=== PATIENT | male | born 1975 | race African-American/Black ===

== ENCOUNTER 2024-02-11 20:06 | Emergency (ER) | payer BC, SELFPAY ==
[2024-02-11 20:23] VITALS: BP 107/78; PULSE 93; RESP 15; TEMP 36.5; O2SAT 99
--- NOTE | 2024-02-12 05:37 | PC.NURSE ---
called for vitals, no answer
--- OUTSIDE RECORDS SUMMARY | 2024-02-19 03:34 | XMS_ITS | Encounter Summary ---
Author Organization [facility] Address [address] [place] [address] Phone Care Team Providers Care Log Washer Name Role Phone Tracy Soto PAC Primary Care Pro vider Reason for Visit * Reason Comments Follow-up 2 week f/u blood pre ssure Encounter Details Date Type Department Care Team (Late st Contact Info) Description 04/23/2023 3:30 PM CDT Office Visit [facility] - Internal Medicine - [place] [address] [id number] Tracy Soto, [facility] [address] [place] [address] Primary hypertension (Primary Dx) Discharge Disposition: Discharged to home or Selfcare Social History Tobacco Use Types Packs/Day Years Used Date Smoking Tobacco: Some Days Smokeless Tobacco: Never Tobacco Cessation:Ready to Q uit: Not Asked; Counseling Given: Not Answered Alcohol Use Standard Drinks/Week Comments Yes 0 (1 standard drink = 0.6 oz pur e alcohol) [facility] Utilities Answer Date Recorded In the past 12 months has NCR, gas, oil, or water company threatened to shut off services in your home? No 02/21/2023 Social Connection and Isolat ion Panel [NHANES] Answer Date Recorded In a typical week, how many times do you talk on the phone with family, friends, or neighbors? More than three times a week 02/21/2023 How often do you get togethe r with friends or relatives? Once a week 02/21/2023 How often do you attend chur or caodaism services? Patient declined 02/21/2023 Do you belong to any clubs o r organizations such as adventist groups, unions, fraternal or athletic groups, or school groups? Yes 02/21/2023 How often do you attend meet ings of the clubs or organizations you belong to? Patient declined 02/21/2023 Are you , , di vorced, , never , or living with a partner? 02/21/2023 AUDIT-C Answer Date Recorded Q1: How often do you have a drink containing alcohol? Monthly or less 02/21/2023 Q2: How many drinks containi ng alcohol do you have on a typical day when you are drinking? Patient does not drink Q3: How often do you have si x or more drinks on one occasion? Never 02/21/2023 Overall Financial Resource Strain (CARDIA) Answe r Date Recorded How hard is it for you to pa y for the very basics like food, housing, medical care, and heating? Not very hard 02/21/2023 PHQ-2 Answer Date Recorded Total Score - Questions 1-9 0 04/12 [facility] - Occupational Stress Questionnaire Answer Date Recorded Do you feel stress - tense, restless, nervous, or anxious, or unable to sleep at night because your mind is troubled all the time - these days? To some extent 02/21/2023 Exercise Vital Sign Answer Date Recorde d On average, how many days pe r week do you engage in moderate to strenuous exercise (like a brisk walk)? 6 days 02/21/2023 On average, how many minutes do you engage in exercise at this level? 150+ min 02/21/2023 Hunger Vital Sign Answer Date Recorded Within the past 12 months, y ou worried that your food would run out before you got the money to buy more. Never true 02/21/19 24 Within the past 12 months, t he food you bought just didn't last and you didn't have money to get more. Never true 02/21/2023 PRAPARE - Transportation Answer Date Re corded In the past 12 months, has l ack of transportation kept you from medical appointments or from getting medications? No 02/12 In the past 12 months, has l ack of transportation kept you from meetings, work, or from getting things needed for daily living? No 02/21/2023 Housing Stability Vital Sign Answer Adama e Recorded In the last 12 months, was t here a time when you were not able to pay the mortgage or rent on time? No 02/21/2023 In the last 12 months, how many places have you lived? 1 02/21/2023 In the last 12 months, was t here a time when you did not have a steady place to sleep or slept in a intermediate (including now)? No 02/21/2023 Education Answer Date Recorded What is the highest level of school you have completed or the highest degree you have received? Associate degree: occupational, technical, or vocational program 06/26/2022 Sexually Active Control Partners Comments Yes Sex and Gender Information Value Date Recorded Sex Assigned at Not on file Legal Sex Male 11:25 AM CDT Gender Identity Not on file Sexual Orientation Not on file documented as of this encounter Last Filed Vital Signs Vital Sign Reading Time Taken Comments Blood Pressure 142/74 04/23/2023 3:36 PM CDT Pulse 64 04/23/2023 3:36 PM CDT Temperature 37.1 ??C (98.7 ??F) 04/23/2023 3:36 PM CD T Respiratory Rate 12 04/23/2023 3:36 PM CDT Oxygen Saturation 98% 04/23/2023 3:36 PM CDT Inhaled Oxygen Concentration - - Weight 79.7 kg (175 lb 9.6 oz) 04/23/2023 3:36 P M CDT Height 170.2 cm (5' 7 ) 04/23/2023 3:36 PM CDT Body Mass Index 27.5 04/23/2023 3:36 PM CDT documented in this encounter Functional Status * Question Answer Date of Assessment Author Little interest or pleasure in doing things Not at all 04/23/2023 3:35 PM CDT Natalie Heck Feeling down, depressed, or hopeless Not at all 04/12 3:35 PM CDT Umang Natalie * Over the past 2 weeks, how often have you been bothered by any of the following problems? Question Answer Date of Assessment Author Patient Health Questionnaire-2 Score 0 04/12 3:35 PM CDT Umang May documented as of this encounter Progress Notes * Umang May - 04/23/2023 3:30 PM CDT Geoffrey Walker, 48 y.o., male is here for Follow-up (2 week f/u blood pressure) Medication Refills: Patient reports/denies need for medication refills. Orders Pended: no Requested Prescriptions No prescriptions requested or ordered in this encounter Home Medications Medication Sig Start Date End Date Taking? Authorizing Provider cloNIDine (CATAPRES) 0.1 MG Tablet Take one tablet twice day NEEDED if blood pressure if 170/90 or higher 02/21/23 Yes Tracy Soto PAC lisinopril (PRINIVIL, ZESTRIL) 40 MG Tablet Take 1 Tablet by mouth daily. 02/21/23 Yes Tracy Soto PAC varenicline (CHANTIX) 1 MG Tablet Take 1 Tablet by mouth 2 times daily. 01/22/23 Yes Tracy Soto PAC There are no discontinued medications. I have reviewed the home medication list with the patient and have reconciled discrepancies. The list is accurate to the best of my knowledge. Smoking Status: Social History Tobacco Use Smoking status: Some Days Smokeless tobacco: Never Vaping Use Vaping Use: Never used Substance Use Topics Alcohol use: Yes Drug use: Yes Types: Marijuana Smoking Cessation Counseling Given: no Health Care Maintenance: Health Maintenance Due Topic Date Due Hepatitis B Immunization (1 of 3 - 3-dose series) Never done Hepatitis C Virus (HCV) Screening Never done Pneumococcal Immunization Combined (1 of 2 - PCV) Never done DTaP/Tdap/Td Immunization (1 - Tdap) Never done Colorectal Cancer Screening Never done Influenza Immunization (1) 10/13/2022 SARS-COV-2 Immunization ( - 2022- season) 2022 Orders Pended: no The following BPA's have been addressed with the patient today: BMI, Depression, Fall Risk, and Nutrition * Tracy Soto PAC - 04/23/2023 3:30 PM CDT Chief Complaint: Chief Complaint Patient presents with Follow-up 2 week f/u blood pressure Assessment/Plan: Diagnoses and all orders for this visit: Primary hypertension Other orders - hydroCHLOROthiazide (MICROZIDE) 12.5 MG Capsule; Take 1 Capsule by mouth daily. Add HCTZ Cont lisinopril 40 daily BP log BID F/u 1 mo Subjective: Mr. Geoffrey Walker is a 48 y.o. male here today for above. BP check BP is better but still 140s No other c/o Tolerating meds well ROS: Review of Systems All other systems reviewed and are negative. VITAL SIGNS: BP Readings from Last 3 Encounters: 04/23/23 142/74 02/21/23 190/84 01/22/23 150/86 Wt Readings from Last 3 Encounters: 04/23/23 175 lb 9.6 oz (79.7 kg) 02/21/23 181 lb (82.1 kg) 01/22/23 174 lb (78.9 kg) Vitals: 04/23/23 1536 BP: 142/74 BP Location: Left Arm BP Position: Sitting BP Cuff Size: Regular Pulse: 64 Resp: 12 Temp: 98.7 ??F (37.1 ??C) TempSrc: Temporal SpO2: 98% Weight: 175 lb 9.6 oz (79.7 kg) Height: 5' 7 (1.702 m) Body mass index is 27.5 kg/m??. PHYSICAL EXAM: Physical Exam Vitals reviewed. Constitutional: Appearance: Normal appearance. HENT: Head: Normocephalic and atraumatic. Cardiovascular: Rate and Rhythm: Regular rhythm. Heart sounds: Normal heart sounds. Pulmonary: Breath sounds: Normal breath sounds. Musculoskeletal: General: Normal range of motion. Skin: General: Skin is warm. Neurological: Mental Status: Mental status is at baseline. Psychiatric: Mood and Affect: Mood normal. Labs/Studies Reviewed: Lab Results Component Value Date WBC 6.94 06/26/2022 HEMOGLOBIN 13.7 06/26/2022 HEMATOCRIT 44.0 06/26/2022 PLATELETCNT 267 06/26/2022 MCV 94.8 06/26/2022 Lab Results Component Value Date SODIUM 138 06/26/2022 POTASSIUM 3.9 06/26/2022 CHLORIDE 101 06/26/2022 CO2VEN 30 06/26/2022 ANIONGAP 10.9 06/26/2022 GLUCOSE 84 06/26/2022 BUN 10 06/26/2022 CREATININE 0.91 06/26/2022 BCRATIO8 11 (L) 06/26/2022 TOTALPROTEIN 6.6 06/26/2022 ALBUMIN 4.3 06/26/2022 CALCIUM 9.3 06/26/2022 TBIL <0.3 06/26/2022 SGOTAST 14 06/26/2022 SGPTALT 11 06/26/2022 ALKALINEPHO 76 06/26/2022 GFRNA >60 06/26/2022 GFRA >60 06/26/2022 Lab Results Component Value Date TSH 1.110 06/26/2022 Lab Results Component Value Date HGBA1C 5.5 06/26/2022 Lab Results Component Value Date CHOLESTEROL 168 06/26/2022 TRIGLYCRIDES 54 06/26/2022 HDLCHOLESTE 63.4 06/26/2022 LDL 94 06/26/2022 No results found for: PSASCREEN , PSA , PSAFREE , PSAPCNTFREE , PSATOTAL @MAMMOFINDINGS@ No results found. Recent Procedure Details No resulted procedures found. FOLLOWUP: Follow-up Information Return in about 4 weeks (around 05/21/2023) for BP Review. LOS Today OFFICE/OP EST LVL 3 LOW MDM/20-29 MIN Past medical, surgical, social and family history has been reviewed and updated as necessary. Medications and allergies has been reviewed and updated. I discussed all new medications and potential side effects or risks associated with them. Patient is to contact our office with any concerns. Patient instructions and educational materials were given to the patient. Patient (or patient insurance account representative) demonstrates verbal understanding of instructions given. Patient should follow up with their PCP for general health maintenance needs. Patient should contact our office if their problems persist or call 911/go the to ER if issues become more persistent. If any referrals have been made, patient should contact our office with in 3-5 days if they have not heard anything from our referral team or the referring physician. documented in this encounter Plan of Treatment Not on file documented as of this encounter Visit Diagnoses Diagnosis Primary hypertension- Primary Unspecified essential hypertension documented in this encounter Additional Health Concerns Assessment Noted Time PHQ-9 Depression Total Score: 0 04/23/19 24 3:35 PM CDT documented as of this encounter Care Teams Log Washer Relationship Specialty Start Date End Date Tracy Soto PAC [address] [place] [address] PCP - General Physician Compass Operator 12/21/21 documented as of this encounter
--- OUTSIDE RECORDS SUMMARY | 2024-02-19 03:34 | XMS_ITS | Encounter Summary ---
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 Role Phone Tracy Soto Primary Care Pro vider Reason for Referral * PT/OT/ST (Routine) - Canceled Specialty Diagnoses / Procedures Referred By Preeti tatum Referred To Contact Rehabilitation Diagnoses Left shoulder pain, unspecified chronicity Neck pain Tracy Soto PAC [address] [place] [address] Phone: tel: fax: [facility] [address] [facility], [address] [address] Phone: tel: fax: Referral ID Status Reason Start Date Expiration Date V isits Requested Visits Authorized [id number] Canceled 07/06/2023 1 1 Scheduling Instructions Geoffrey is being referred for neck pain and shoulder. Please contact patient for scheduling questions or concerns. * Radiology Services (Routine) - Closed Specialty Diagnoses / Procedures Referred By Preeti tatum Referred To Contact Radiology Diagnoses Left shoulder pain, unspecified chronicity Procedures XR SHOULDER COMPLETE LEFT Tracy Soto PAC [address] [place] [address] Phone: tel: fax: Referral ID Status Reason Start Date Expiration Date Visits Re quested Visits Authorized [id number] Closed 07/06/2023 1 1 * Radiology Services (Routine) - Closed Specialty Diagnoses / Procedures Referred By Contac t Referred To Contact Radiology Diagnoses Neck pain Procedures XR CERVICAL SPINE MINIMUM 4 VIEWS (4 OR 5V) Tracy Soto PAC [address] [place] [address] Phone: tel: fax: Referral ID Status Reason Start Date Expiration Date Visits Re quested Visits Authorized [id number] Closed 07/06/2023 1 1 Reason for Visit * Reason Comments Pain Hand pain in joints , and left shoulder , left hand hurts more Encounter Details Date Type Department Care Team (Late st Contact Info) Description 07/06/2023 4:00 PM CDT Office Visit [facility] - Internal Medicine - [place] [address] [place] [address] Tracy Soto PAC [address] [place] [address] Primary hypertension (Primary Dx); Elevated blood pressure reading; Left shoulder pain, unspecified chronicity; Neck pain Discharge Disposition: Discharged to home or Selfcare Social History Tobacco Use Types Packs/Day Years Used Date Smoking Tobacco: Some Days Smokeless Tobacco: Never Tobacco Cessation:Ready to Q uit: No; Counseling Given: No Alcohol Use Standard Drinks/Week Comments Yes 0 (1 standard drink = 0.6 oz pur e alcohol) [facility] Utilities Answer Date Recorded In the past 12 months has e [employer], gas, oil, or water [employer] threatened to shut off services in your [...] 02/21/2023 How often do you attend chur ch or amish services? Patient declined 02/21/2023 Do you belong to any clubs o r organizations such as yarsani groups, unions, fraternal or athletic groups, or [...] Total Score - Questions 1-9 0 04/12 [facility] - Occupational Stress Questionnaire Answer Date Recorded [...] place to sleep or slept in a nursing home (including now)? No 02/21/2023 Education Answer Date [...] Sign Reading Time Taken Comments Blood Pressure 129/68 07/06/2023 3:54 PM CDT his cuff Pulse 79 07/06/2023 3:52 PM CDT Temperature 36.4 ??C (97.5 ??F) 07/06/2023 3:52 PM CD T Respiratory Rate 12 07/06/2023 3:52 PM CDT Oxygen Saturation 98% 07/06/2023 3:52 PM CDT Inhaled Oxygen Concentration - - Weight 82.1 kg (181 lb) 07/06/2023 3:52 PM CDT Height 170.2 cm (5' 7 ) 07/06/2023 3:52 PM CDT Body Mass Index 28.35 07/06/2023 3:52 PM CDT documented in this encounter Progress Notes * Tracy Soto, PAC - 07/06/2023 4:00 PM CDT Chief Complaint: Chief Complaint Patient presents with Pain Hand pain in joints , and left shoulder , left hand hurts more Assessment/Plan: Diagnoses and all orders for this visit: Primary hypertension Elevated blood pressure reading Left shoulder pain, unspecified chronicity - XR SHOULDER COMPLETE LEFT; Future - PHYSICAL THERAPY REFERRAL; Future Neck pain - XR CERVICAL SPINE MINIMUM 4 VIEWS (4 OR 5V); Future - PHYSICAL THERAPY REFERRAL; Future Other orders - methylPREDNISolone (MEDROL DOSPACK) 4 MG Tablet Therapy Pack; Follow instructions on pack, take with food; Give one pack L shoulder pain Neck pain Advised MDP OTC nsaids PRN PT eval and treat BP controlled today F/u in 4 wks after PT Await xrays Subjective: Mr. Geoffrey Walker is a 48 y.o. male here today for above. Pt c/u neck pain and L shoulder pain Sx are made worse at work Pt is R handed Denies any specific injury Sx for a few weeks ROS: Review of Systems Musculoskeletal: Positive for joint pain and neck pain. VITAL SIGNS: BP Readings from Last 3 Encounters: 07/06/23 129/68 05/28/23 172/82 04/23/23 142/74 Wt Readings from Last 3 Encounters: 07/06/23 181 lb (82.1 kg) 05/28/23 181 lb (82.1 kg) 04/23/23 175 lb 9.6 oz (79.7 kg) Vitals: 07/06/23 1552 07/06/23 1554 BP: 146/76 129/68 BP Location: Left Arm BP Position: Sitting BP Cuff Size: Regular Pulse: 79 Resp: 12 Temp: 97.5 ??F (36.4 ??C) TempSrc: Temporal SpO2: 98% Weight: 181 lb (82.1 kg) Height: 5' 7 (1.702 m) Body mass index is 28.35 kg/m??. PHYSICAL EXAM: Physical Exam Vitals reviewed. Constitutional: Appearance: Normal appearance. HENT: Head: Normocephalic and atraumatic. Mouth/Throat: Mouth: Mucous membranes are moist. Eyes: Extraocular Movements: Extraocular movements intact. Cardiovascular: Rate and Rhythm: Regular rhythm. Pulmonary: Effort: Pulmonary effort is normal. Breath sounds: Normal breath sounds. Musculoskeletal: General: Tenderness present. No deformity. Normal range of motion. Comments: Neck pain with URIAH No deformity DTRs 2/4 Sens grossly intact Good strength L shoulder pain Decreased ROM L shoulder Skin: General: Skin is warm. Neurological: General: No focal deficit present. Mental Status: He is alert. Psychiatric: Mood and Affect: Mood normal. Labs/Studies Reviewed: Lab Results Component Value Date WBC 7.36 07/07/2023 HEMOGLOBIN 12.9 (L) 07/07/2023 HEMATOCRIT 40.9 07/07/2023 PLATELETCNT 317 07/07/2023 MCV 92.1 07/07/2023 Lab Results Component Value Date SODIUM 144 07/07/2023 POTASSIUM 4.0 07/07/2023 CHLORIDE 110 (H) 07/07/2023 CO2VEN 27 07/07/2023 ANIONGAP 11.0 07/07/2023 GLUCOSE 92 07/07/2023 BUN 8 (L) 07/07/2023 CREATININE 1.14 07/07/2023 BCRATIO8 7 (L) 07/07/2023 TOTALPROTEIN 6.8 07/07/2023 ALBUMIN 4.1 07/07/2023 CALCIUM 9.1 07/07/2023 TBIL 0.3 07/07/2023 SGOTAST 16 07/07/2023 SGPTALT 17 07/07/2023 ALKALINEPHO 67 07/07/2023 GFRNA >60 07/07/2023 GFRA >60 07/07/2023 Lab Results Component Value Date TSH 0.767 07/07/2023 Lab Results Component Value Date HGBA1C 5.8 07/07/2023 Lab Results Component Value Date CHOLESTEROL 166 07/07/2023 TRIGLYCRIDES 60 07/07/2023 HDLCHOLESTE 53 07/07/2023 LDL 101 07/07/2023 Lab Results Component Value Date PSASCREEN 1.42 07/07/2023 @MAMMOFINDINGS@ No results found. Recent Procedure Details No resulted procedures found. FOLLOWUP: Follow-up Information Return in about 4 weeks (around 08/03/2023) for Acute symptom check. LOS Today OFFICE/OP EST LVL 3 LOW [...] given to the patient. 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 [...] documented in this encounter Plan of Treatment Scheduled Referrals Name Type Priority Associated Diagnoses Orde r Schedule PHYSICAL THERAPY REFERRAL Outpatient Referral Routine Left shoulder pain, unspecified chronicity Neck pain Expected: 07/06/2023, Expires: 07/05/2024 documented as of this encounter Results * XR SHOULDER COMPLETE LEFT (07/07/2023 11:57 AM CDT) Anatomical Region Laterality Modality UPPER EXTREMITY, shoulder Left Digita l Radiography 07/08/2023 12:2 0 PM CDT Impressions 07/08/2023 12:23 PM CDT IMPRESSION: Ommb-oz-plhlzbpv C6-C7 degenerative disc disease with left-sided foraminal impingement. Normal left shoulder evaluation. Narrative 07/08/2023 12:23 PM CDT EXAM DESCRIPTION: XR CERVICAL SPINE MINIMUM 4 VIEWS (4 OR 5V); XR SHOULDER COMPLETE LEFT REASON FOR STUDY: Pain to inferior shoulder blade radiating to bilateral arms and into neck with numbness and tingling x 4-5 days. No known injury. No neck surgery. ??; Pain to inferior shoulder blade radiating to bilateral arms and into neck with numbness and tingling x 4-5 days. No known injury. Unsure if this is the shoulder that he had surgery. ? FINDINGS: Four views left shoulder and five views cervical spine submitted without comparison. Cervical spine. No acute fractures are identified. ??There is no prevertebral soft tissue swelling. ??There is mzmi-we-ygdbixpi C6-C7 degenerative disc disease. ?? There is left-sided C6-C7 foraminal impingement. Left shoulder: No acute fractures are identified. ??Alignment is normal. ??The joint spaces are normal. THIS IS AN ELECTRONICALLY VERIFIED FINAL REPORT 07/08/2023 12:20 PM - Electronically signed by ??Chacorta Maldonado M.D. MF: [id number] D: ??07/08/2023 12:20 PM T: ??07/08/2023 12:20 PM Report ID: [id number] Reading Location: ??[id number] Procedure Note Chacorta Maldonado MD - 07/08/2023 EXAM DESCRIPTION: XR CERVICAL SPINE MINIMUM 4 VIEWS (4 OR 5V); XR SHOULDER COMPLETE LEFT REASON FOR STUDY: Pain to inferior shoulder blade radiating to bilateral arms and into neck with numbness and tingling x 4-5 days. No known injury. No neck surgery. ; Pain to inferior shoulder blade radiating to bilateral arms and into neck with numbness and tingling x 4-5 days. No known injury. Unsure if this is the shoulder that he had surgery. FINDINGS: Four views left shoulder and five views cervical spine submitted without comparison. Cervical spine. No acute fractures are identified. There is no prevertebral soft tissue swelling. There is fccw-xc-ngnjamwt C6-C7 degenerative disc disease. There is left-sided C6-C7 foraminal impingement. Left shoulder: No acute fractures are identified. Alignment is normal. The joint spaces are normal. THIS IS AN ELECTRONICALLY VERIFIED FINAL REPORT 07/08/2023 12:20 PM - Electronically signed by Chacorta Maldonado M.D. MF: [id number] Report ID: [id number] Reading Location: [id number] IMPRESSION: Gcsq-rj-knmerrtk C6-C7 degenerative disc disease with left-sided foraminal impingement. Normal left shoulder evaluation. Tracy Soto [facility] IMG DIAGNOSTIC OR DERABLES Final Result * XR CERVICAL SPINE MINIMUM 4 VIEWS (4 OR 5V) (07/07/2023 11:52 AM CDT) Anatomical Region Laterality Modality Spine, C-spine N/A Digital Radiogra phy 07/08/2023 12:2 0 PM CDT Impressions 07/08/2023 12:23 PM CDT IMPRESSION: Adpr-dh-sfiqzbpo C6-C7 degenerative disc disease with left-sided foraminal impingement. Normal left shoulder evaluation. Narrative 07/08/2023 12:23 PM CDT EXAM DESCRIPTION: XR CERVICAL SPINE MINIMUM 4 VIEWS (4 OR 5V); XR SHOULDER COMPLETE LEFT REASON FOR STUDY: Pain to inferior shoulder blade radiating to bilateral arms and into neck with numbness and tingling x 4-5 days. No known injury. No neck surgery. ??; Pain to inferior shoulder blade radiating to bilateral arms and into neck with numbness and tingling x 4-5 days. No known injury. Unsure if this is the shoulder that he had surgery. ? FINDINGS: Four views left shoulder and five views cervical spine submitted without comparison. Cervical spine. No acute fractures are identified. ??There is no prevertebral soft tissue swelling. ??There is nvfr-mu-eenwljoo C6-C7 degenerative disc disease. ?? There is left-sided C6-C7 foraminal impingement. Left shoulder: No acute fractures are identified. ??Alignment is normal. ??The joint spaces are normal. THIS IS AN ELECTRONICALLY VERIFIED FINAL REPORT 07/08/2023 12:20 PM - Electronically signed by ??Chacorta Maldonado M.D. MF: [id number] D: ??07/08/2023 12:20 PM T: ??07/08/2023 12:20 PM Report ID: [id number] Reading Location: ??[id number] Procedure Note Chacorta Maldonado MD - 07/08/2023 EXAM DESCRIPTION: XR CERVICAL SPINE MINIMUM 4 VIEWS (4 OR 5V); XR SHOULDER COMPLETE LEFT REASON FOR STUDY: Pain to inferior shoulder blade radiating to bilateral arms and into neck with numbness and tingling x 4-5 days. No known injury. No neck surgery. ; Pain to inferior shoulder blade radiating to bilateral arms and into neck with numbness and tingling x 4-5 days. No known injury. Unsure if this is the shoulder that he had surgery. FINDINGS: Four views left shoulder and five views cervical spine submitted without comparison. Cervical spine. No acute fractures are identified. There is no prevertebral soft tissue swelling. There is snkf-ef-lhhsfmqs C6-C7 degenerative disc disease. There is left-sided C6-C7 foraminal impingement. Left shoulder: No acute fractures are identified. Alignment is normal. The joint spaces are normal. THIS IS AN ELECTRONICALLY VERIFIED FINAL REPORT 07/08/2023 12:20 PM - Electronically signed by Chacorta Maldonaod M.D. MF: [id number] Report ID: [id number] Reading Location: [place] [id number] IMPRESSION: Svwv-ju-mzxzitqo C6-C7 degenerative disc disease with left-sided foraminal impingement. Normal left shoulder evaluation. 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
--- OUTSIDE RECORDS SUMMARY | 2024-02-19 03:34 | XMS_ITS | Encounter Summary ---
Author Organization [facility] Address [address] [place] [address] Phone Care Team Providers Care Box Builder Name Role Phone Tracy Soto PAC Primary Care Pro vider Reason for Visit * Reason Comments Hypertension Encounter Details Date Type Department Care Team (Late st Contact Info) Description 01/22/2023 3:30 PM SENIOR AUTOMATION ENGINEER Office Visit [facility] - [facility] - [place] [address] [place] [id number] Tracy Soto, [facility] [address] [place] [address] Elevated blood pressure reading (Primary Dx); Primary hypertension; Smoker Discharge Disposition: Discharged to home or Selfcare Social History Tobacco Use Types Packs/Day Years Used Date Smoking Tobacco: Some Days Smokeless Tobacco: Never Tobacco Cessation:Ready to Q uit: No; Counseling Given: No Alcohol Use Standard Drinks/Week Comments Yes 0 (1 standard drink = 0.6 oz pur e alcohol) Education Answer Date Recorded What is the [...] Sign Reading Time Taken Comments Blood Pressure 150/86 01/22/2023 3:30 PM SENIOR AUTOMATION ENGINEER Pulse 81 01/22/2023 3:30 PM SENIOR AUTOMATION ENGINEER Temperature 36.7 ??C (98 ??F) 01/22/2023 3:30 PM SENIOR AUTOMATION ENGINEER Respiratory Rate 12 01/22/2023 3:30 PM SENIOR AUTOMATION ENGINEER Oxygen Saturation 98% 01/22/2023 3:30 PM SENIOR AUTOMATION ENGINEER Inhaled Oxygen Concentration - - Weight 78.9 kg (174 lb) 01/22/2023 3:30 PM SENIOR AUTOMATION ENGINEER Height 170.2 cm (5' 7 ) 01/22/2023 3:30 PM SENIOR AUTOMATION ENGINEER Body Mass Index 27.25 01/22/2023 3:30 PM SENIOR AUTOMATION ENGINEER documented in this encounter Patient Instructions * Patient Instructions* Macy Parada, RMA - 01/22/2023 3:30 PM SENIOR AUTOMATION ENGINEER Images from the original note were not included. Steps to Quit Smoking Smoking tobacco is the leading cause of preventable . It can affect almost every organ in the body. Smoking puts you and those around you at risk for developing many serious chronic diseases. Quitting smoking can be difficult, but it is one of the best things that you can do for your health. It is never too late to quit. How do I get ready to quit? When you decide to quit smoking, create a plan to help you succeed. Before you quit: ??? Pick a date to quit. Set a date within the next 2 weeks to give you time to prepare. ??? Write down the reasons why you are quitting. Keep this list in places where you will see it often. ??? Tell your family, friends, and co-workers that you are quitting. Support from your loved ones can make quitting easier. ??? Talk with your health care provider about your options for quitting smoking. ??? Find out what treatment options are covered by your health insurance. ??? Identify people, places, things, and activities that make you want to smoke (triggers). Avoid them. What first steps can I take to quit smoking? Throw away all cigarettes at home, at work, and in your car. ??? Throw away smoking accessories, such as ashtrays and lighters. ??? Clean your car. Make sure to empty the ashtray. ??? Clean your home, including curtains and carpets. What strategies can I use to quit smoking? Talk with your health care provider about combining strategies, such as taking medicines while you are also receiving in-person counseling. Using these two strategies together makes you more likely to succeed in quitting than if you used either strategy on its own. ??? If you are or , talk with your health care provider about finding counseling or other support strategies to quit smoking. Do not take medicine to help you quit smoking unless your health care provider tells you to do so. To quit smoking: Quit right away ??? Quit smoking completely, instead of gradually reducing how much you smoke over a period of time. Research shows that stopping smoking right away is more successful than gradually quitting. ??? Attend in-person counseling to help you build problem-solving skills. You are more likely to succeed in quitting if you attend counseling sessions regularly. Even short sessions of 10 minutes canbe effective. Take medicine You may take medicines to help you quit smoking. Some medicines require a prescription and some youcan purchase [id number]. Medicines may have nicotine in them to replace the nicotine in cigarettes. Medicines may: ??? Help to stop cravings. ??? Help to relieve withdrawal symptoms. Your health care provider may recommend: ??? Nicotine patches, gum, or lozenges. ??? Nicotine inhalers or sprays. ??? Non-nicotine medicine that is taken by mouth. Find resources Find resources and support systems that can help you to quit smoking and remain smoke-free after you quit. These resources are most helpful when you use them often. They include: ??? Online chats with a counselor. ??? Telephone quitlines. ??? Printed self-help materials. ??? Support groups or group counseling. ??? Text messaging programs. ??? Mobile phone apps or applications. Use apps that can help you stick to your quit plan by providing reminders, tips, and encouragement. There are many free apps for mobile devices as well as websites. Examples include Quit Guide from the CDC and smokefree.gov What things can I do to make it easier to quit? Reach out to your family and friends for support and encouragement. Call telephone quitlines (8-016-GYKG-NOW), reach out to support groups, or work with a counselor for support. ??? Ask people who smoke to avoid smoking around you. ??? Avoid places that trigger you to smoke, such as bars, parties, or smoke- break areas at work. ??? Spend time with people who do not smoke. ??? Lessen the stress in your life. Stress can be a smoking trigger for some people. To lessen stress, try: ? Exercising regularly. ? Doing deep-breathing exercises. ? Doing yoga. ? Meditating. ? Performing a body scan. This involves closing your eyes, scanning your body from head to toe, andnoticing which parts of your body are particularly tense. Try to relax the muscles in those areas. How will I feel when I quit smoking? Day 1 to 3 weeks Within the first 24 hours of quitting smoking, you may start to feel withdrawal symptoms. These symptoms are usually most noticeable 2-3 days after quitting, but they usually do not last for more than 2-3 weeks. You may experience these symptoms: ??? Mood swings. ??? Restlessness, anxiety, or irritability. ??? Trouble concentrating. ??? Dizziness. ??? Strong cravings for sugary foods and nicotine. ??? Mild weight gain. ??? Constipation. ??? Nausea. ??? Coughing or a sore throat. ??? Changes in how the medicines that you take for unrelated issues work in your body. ??? Depression. ??? Trouble sleeping (insomnia). Week 3 and afterward After the first 2-3 weeks of quitting, you may start to notice more positive results, such as: ??? Improved sense of smell and taste. ??? Decreased coughing and sore throat. ??? Slower heart rate. ??? Lower blood pressure. ??? Clearer skin. ??? The ability to breathe more easily. ??? Fewer sick days. Quitting smoking can be very challenging. Do not get discouraged if you are not successful the first time. Some people need to make many attempts to quit before they achieve long-term success. Do your best to stick to your quit plan, and talk with your health care provider if you have any questionsor concerns. Summary ??? Smoking tobacco is the leading cause of preventable . Quitting smoking is one of the best things that you can do for your health. ??? When you decide to quit smoking, create a plan to help you succeed. ??? Quit smoking right away, not slowly over a period of time. ??? When you start quitting, seek help from your health care provider, family, or friends. This information is not intended to replace advice given to you by your health care provider. Make sure you discuss any questions you have with your health care provider. Document Revised: 10/07/2021 Document Reviewed: 04/19/2019 [employer] Patient Education ?? 2021 [employer] Health Risks of Smoking Smoking tobacco is very bad for your health. Tobacco smoke contains many toxic chemicals that can damage every part of your body. Secondhand smoke can be harmful to those around you. Tobacco or nicotine use can cause many long-term (chronic) diseases. Smoking is difficult to quit because a chemical in tobacco, called nicotine, causes addiction or dependence. When you smoke and inhale, nicotine is absorbed quickly into the bloodstream through your lungs. Both inhaled and non-inhaled nicotine may be addictive. How can quitting affect me? There are health benefits of quitting smoking. Some benefits happen right away and others take time. Benefits may include: ??? Blood flow, blood pressure, heart rate, and lung capacity may begin to improve. However, any lung damage that has already occurred cannot be repaired. ??? Temporary respiratory symptoms, such as nasal congestion and cough, may improve over time. ??? Your risk of heart disease, stroke, and cancer is reduced. ??? The overall quality of your health may improve. ??? You may save money, as you will not spend money on tobacco products and may spend less money onsmoking-related health issues. What can increase my risk? Smoking harms nearly every organ in the body. People who smoke tobacco have a shorter life expectancy and an increased risk of many serious medical problems. These include: ??? More respiratory infections, such as colds and pneumonia. ??? Cancer. ??? Heart disease. ??? Stroke. ??? Chronic respiratory diseases. ??? Delayed wound healing and increased risk of complications during surgery. ??? Problems with reproduction, , and childbirth, such as infertility, early (premature) births, stillbirths, and defects. Secondhand smoke exposure to children increases the risk of: ??? Sudden syndrome (SIDS). ??? Infections in the nose, throat, or airways (respiratory infections). ??? Chronic respiratory symptoms. What actions can I take to quit? Smoking is an addiction that affects both your body and your mind, and long-time habits can be hardto change. Your health care provider can recommend: ??? Nicotine replacement products, such as patches, gum, and nasal sprays. Use these products only as directed. Do not replace cigarette smoking with electronic cigarettes, which are commonly called e-cigarettes. The safety of e- cigarettes is not known, and some may contain harmful chemicals. ??? Programs and community resources, which may include group support, education, or talk therapy. ??? Prescription medicines to help reduce cravings. ??? A combination of two or more quit methods, which will increase the success of quitting. Where to find support Follow the recommendations from your health care provider about support groups and other assistance. You can also visit: ??? [place] Quitline Consortium: www.Optimal+.[place] or call 0-534-LKYN-NOW. ??? U.S. Department of Health and Human Services: www.smokefree.gov ??? [place] [employer] Association: www.freedomfromsmoking.org ??? [place] Heart Association: www.heart.org Where to find more information ??? Centers for Disease Control and Prevention: www.cdc.gov ??? World Health Organization: www.who.int Summary ??? Smoking tobacco is very bad for your health. Tobacco smoke contains many toxic chemicals that can damage every part of the body. ??? Smoking is difficult to quit because a chemical in tobacco, called nicotine, causes addiction or dependence. ??? There are immediate and long-term health benefits of quitting smoking. ??? A combination of two or more quit methods increases the success of quitting. This information is not intended to replace advice given to you by your health care provider. Make sure you discuss any questions you have with your health care provider. Document Revised: 10/03/2021 Document Reviewed: 03/15/2020 [employer] Patient Education ?? 2021 [employer] OR AUTOMATION ENGINEER documented in this encounter Progress Notes * Macy Parada RMA - 01/22/2023 3:30 PM CST Geoffrey Winsome Walker, 47 y.o., male is here for Hypertension Medication Refills: Patient reports/denies need for medication refills. Orders Pended: no Requested Prescriptions No prescriptions requested or ordered in this encounter Home Medications Medication Sig Start Date End Date Taking? Authorizing Provider cyclobenzaprine (FLEXERIL) 10 MG Tablet 12/07/21 Provider, MD Lana furosemide (LASIX) 20 MG Tablet Take one daily for 3-5 days and then as needed after 07/05/22 Tracy Soto PAC indomethacin (INDOCIN) 25 MG Capsule One tablet twice a day for 5 days then as needed thereafter 07/05/22 Tracy Soto PAC methylPREDNISolone (MEDROL DOSPACK) 4 MG Tablet Therapy Pack Follow instructions on pack, take withfood; Give one pack 07/21/22 Tracy Soto PAC metoprolol tartrate (LOPRESSOR) 50 MG Tablet Take 1 Tablet by mouth 2 times daily. 07/21/22 Tracy Soto PAC There are no discontinued medications. I have reviewed the home medication list with the patient and have reconciled discrepancies. The list is accurate to the best of my knowledge. Smoking Status: Social History Tobacco Use ??? Smoking status: Some Days ??? Smokeless tobacco: Never Vaping Use ??? Vaping Use: Never used Substance Use Topics ??? Alcohol use: Yes ??? Drug use: Yes Types: Marijuana Smoking Cessation Counseling Given: no Health Care Maintenance: Health Maintenance Due Topic Date Due ??? Hepatitis B Immunization (1 of 3 - 3-dose series) Never done ??? Hepatitis C Virus (HCV) Screening Never done ??? Pneumococcal Immunization Combined (1 - PCV) Never done ??? DTaP/Tdap/Td Immunization (1 - Tdap) Never done ??? Colorectal Cancer Screening Never done ??? Influenza Immunization (1) 10/13/2022 ??? SARS-COV-2 Immunization (2022-24 season) 2022 Orders Pended: no The following BPA's have been addressed with the patient today: BMI and Flu OR AUTOMATION ENGINEER * Tracy Soto PAC - 01/22/2023 3:30 PM CST Chief Complaint: Chief Complaint Patient presents with ??? Hypertension Assessment/Plan: Diagnoses and all orders for this visit: Elevated blood pressure reading Primary hypertension Smoker Other orders - amLODIPine (NORVASC) 5 MG Tablet; Take 1 Tablet by mouth daily. - varenicline (CHANTIX) 1 MG Tablet; Take 1 Tablet by mouth 2 times daily. HTN dx Pt needs BP meds He was not taking the metop correctly Will try norvasc 5 mg daily BP log BID Smoking cessation d/w pt chantix trial F/u in 1 mo D/w pt lifestyle changes Subjective: Mr. Geoffrey Walker is a 47 y.o. male here today for above. BP check BP elevated Not taking the BP med but 1-2 times weekly No other concerns ROS: Review of Systems All other systems reviewed and are negative. VITAL SIGNS: BP Readings from Last 3 Encounters: 01/22/23 150/86 07/21/22 (!) 140/92 07/05/22 140/86 Wt Readings from Last 3 Encounters: 01/22/23 174 lb (78.9 kg) 07/21/22 165 lb (74.8 kg) 07/05/22 171 lb (77.6 kg) Vitals: 01/22/23 1530 BP: 150/86 BP Location: Left Arm BP Position: Sitting BP Cuff Size: Regular Pulse: 81 Resp: 12 Temp: 98 ??F (36.7 ??C) TempSrc: Temporal SpO2: 98% Weight: 174 lb (78.9 kg) Height: 5' 7 (1.702 m) Body mass index is 27.25 kg/m??. PHYSICAL EXAM: Physical Exam Vitals reviewed. Constitutional: Appearance: Normal appearance. HENT: Head: Normocephalic. Cardiovascular: Rate and Rhythm: Regular rhythm. Heart sounds: Normal heart sounds. Pulmonary: Breath sounds: Normal breath sounds. Musculoskeletal: General: Normal range of motion. Skin: General: Skin is warm. Neurological: Mental Status: He is alert. Mental status is at baseline. Psychiatric: Mood [...] Information Return in about 4 weeks (around 02/19/2023) for BP Review. LOS Today OFFICE/OP EST [...] given to the patient. Patient (or patient sales representative printing) demonstrates verbal understanding of instructions given. Patient [...] our referral team or the referring physician. OR AUTOMATION ENGINEER documented in this encounter Plan of Treatment Not on file documented as of this encounter Visit Diagnoses Diagnosis Elevated blood pressure reading- Primary Elevated blood pressure reading without diagnosis of hypertension Primary hypertension Unspecified essential hypertension Smoker Tobacco use disorder documented in this encounter Care Teams Box Builder Relationship Specialty Start Date End Date Tracy Soto PAC [address] [place] [address] PCP - General Physician Health Services Director 12/21/21 documented as of this encounter
--- OUTSIDE RECORDS SUMMARY | 2024-02-19 03:34 | XMS_ITS | Encounter Summary ---
Author Organization [facility] Address [address] [place] [address] Phone Care Team Providers Care City Treasurer Name Role Phone Tracy Soto PAC Primary Care Pro vider Reason for Visit * Reason Comments Medication Refill Encounter Details Date Type Department Care Team (Late st Contact Info) Description 03/20/2023 Refill [facility] - Internal Medicine - [place] [address] [place] [phone] Tracy Soto, [facility] [address] [place] [address] Medication Refill Social History Tobacco Use Types Packs/Day Years Used Date Smoking Tobacco: Some Days Smokeless Tobacco: Never Alcohol Use Standard Drinks/Week Comments Yes 0 (1 standard drink = 0.6 oz pur e alcohol) [facility] Utilities Answer Date Recorded In the past 12 months has [employer], oil, or water [employer] threatened to shut off services in your [...] week 02/21/2023 [facility] often [facility] attend [facility] or [facility] services? Patient declined 02/21/2023 Do you belong to any clubs o r organizations such as mormonism groups, unions, fraternal or athletic groups, or [...] care, and heating? Not very hard 02/21/2023 [facility] - Occupational [...] place to sleep or slept in a senior care (including now)? No 02/21/2023 Education Answer Date [...] on file documented as of this encounter Plan of Treatment Not on file documented as of this encounter Visit Diagnoses Not on filedocumented in this encounter Care Teams City Treasurer Relationship Specialty Start Date End Date Tracy Soto PAC [address] [place] [address] PCP - General Physician [employer] Message Broker Developer 12/21/21 documented as of this encounter
--- OUTSIDE RECORDS SUMMARY | 2024-02-19 03:34 | XMS_ITS | Encounter Summary ---
Author Organization [facility] Address [address] [facility] [place] [address] Phone Care Team Providers Care Revenue Coordinator Name Role Phone Tracy Soto PAC Primary Care Pro vider Reason for Visit * Reason Comments Edema Left leg swelling Encounter Details Date Type Department Care Team (Late st Contact Info) Description 07/21/2022 1:30 PM CDT Office Visit [facility] - Internal Medicine - [place] [address] [place] [id number] Tracy Soto PAC [address] [place] [address] Elevated blood pressure reading (Primary Dx); Tachycardia Discharge Disposition: Discharged to home or Selfcare [...] on file Sexual Orientation Not on file COVID-19 Exposure Response Date Recorded In the last 10 days, have yo u been in contact with someone who was confirmed or suspected to have Coronavirus/COVID-19? No / Unsure 07/21/2022 1:35 PM CDT documented as of this encounter Last Filed Vital Signs Vital Sign Reading Time Taken Comments Blood Pressure 140/92 07/21/2022 1:43 PM CDT Pulse 122 07/21/2022 1:43 PM CDT Temperature 36.7 ??C (98.1 ??F) 07/21/2022 1:43 PM CD T Respiratory Rate 12 07/21/2022 1:43 PM CDT Oxygen Saturation 97% 07/21/2022 1:43 PM CDT Inhaled Oxygen Concentration - - Weight 74.8 kg (165 lb) 07/21/2022 1:43 PM CDT Height 170.2 cm (5' 7 ) 07/21/2022 1:43 PM CDT Body Mass Index 25.84 07/21/2022 1:43 PM CDT documented in this encounter Patient Instructions * Patient Instructions* Macy Parada RMA - 07/21/2022 1:30 PM CDT Images from the original note were not [...] require a prescription and some youcan purchase [id number]. Medicines may have nicotine in them to [...] for support and encouragement. Call telephone quitlines (3-417-AAFA-NOW), reach out to support groups, or work [...] provider. Document Revised: 10/07/2021 Document Reviewed: 04/19/2019 [employer] Patient Education ?? 2021 [employer] Health Risks of Smoking Smoking tobacco [...] assistance. You can also visit: ??? [place] [employer]: www.Nuvyyoline.org or call 2-471-EJGK-NOW. ??? [place]. Department of Health and Human Services: www.smokefree.gov ??? [place] [employer]: www.freedomfromsmoking.org ??? [place] [employer]: www.heart.org Where to find more [...] provider. Document Revised: 10/03/2021 Document Reviewed: 03/15/2020 [employer] Patient Education ?? 2021 [employer] documented in this encounter Progress Notes * Macy ParadaSHERON - 07/21/2022 1:30 PM CDT Geoffrey Walker is a 47 y.o. male with current BMI: There is no height or weight on file to calculate BMI. Interventions discussed including: encourage daily physical activity and well- balanced diet. * Macy ParadaSHERON - 07/21/2022 1:30 PM CDT Geoffrey Walker, 47 y.o., male is here for Edema Medication Refills: Patient reports/denies need for medication refills. Orders Pended: no Requested Prescriptions No prescriptions requested or ordered in this encounter Home Medications Medication Sig Start Date End Date Taking? Authorizing Provider cyclobenzaprine (FLEXERIL) 10 MG Tablet TAKE 1 TABLET BY MOUTH TWICE A DAY NEEDED FOR MUSCLE SPASMS Patient not taking: Reported on 07/05/2022 12/07/21 Provider, MD Lana furosemide (LASIX) 20 MG Tablet Take one daily for 3-5 days and then as needed after 07/05/22 Tracy Soto PAC indomethacin (INDOCIN) 25 MG Capsule One tablet twice a day for 5 days then as needed thereafter 07/05/22 Tracy Soto PAC methylPREDNISolone (MEDROL DOSPACK) 4 MG Tablet Therapy Pack Follow instructions on pack, take withfood; Give one pack 06/26/22 Tracy Soto PAC There are no discontinued [...] ??? Colorectal Cancer Screening Never done ??? SARS-COV-2 Immunization (4 - Pfizer series) 10/13/2021 Orders Pended: no The following BPA's have been addressed with the patient today: BMI * Tracy Soto, LAURA - 07/21/2022 1:30 PM CDT Chief Complaint: Chief Complaint Patient presents with ??? Edema Left leg swelling Assessment/Plan: Diagnoses and all orders for this visit: Elevated blood pressure reading Tachycardia Other orders - metoprolol tartrate (LOPRESSOR) 50 MG Tablet; Take 1 Tablet by mouth 2 times daily. - methylPREDNISolone (MEDROL DOSPACK) 4 MG Tablet Therapy Pack; Follow instructions on pack, take with food; Give one pack Venous doppler normal Arterial doppler normal Xray L foot d/w pt Has taken NSAIDS, idomethacin, mm relaxers, other Will advised MDP to see if this helps If not, will refer to ortho for further care Other than some mild L foot swelling, no abnormal findings Subjective: Mr. Geoffrey Walker is a 47 y.o. male here today for above. L foot pain L foot swelling Lower leg swelling No SOB No cough Pain in L leg primarily ROS: Review of Systems Cardiovascular: Positive for leg swelling. Musculoskeletal: L foot pain VITAL SIGNS: BP Readings from Last 3 Encounters: 07/21/22 (!) 140/92 07/05/22 140/86 06/26/22 172/80 Wt Readings from Last 3 Encounters: 07/21/22 165 lb (74.8 kg) 07/05/22 171 lb (77.6 kg) 12/21/21 160 lb 1.6 oz (72.6 kg) Vitals: 07/21/22 1343 BP: (!) 140/92 BP Location: Left Arm BP Position: Sitting BP Cuff Size: Regular Pulse: (!) 122 Resp: 12 Temp: 98.1 ??F (36.7 ??C) TempSrc: Temporal SpO2: 97% Weight: 165 lb (74.8 kg) Height: 5' 7 (1.702 m) Body mass index is 25.84 kg/m??. PHYSICAL EXAM: Physical Exam Vitals reviewed. Constitutional: Appearance: Normal appearance. HENT: Mouth/Throat: Mouth: Mucous membranes are moist. Eyes: Extraocular Movements: Extraocular movements intact. Cardiovascular: Rate and Rhythm: Tachycardia present. Heart sounds: Normal heart sounds. Musculoskeletal: Cervical back: Neck supple. Left lower leg: Edema present. Comments: Very mild L foot swelling No ankle swelling Mild foot pain lateral with palpation Skin: General: Skin is warm. Neurological: Mental [...] LDL 94 06/26/2022 No results found for: PSASCREEN, PSA, PSAFREE, PSAPCNTFREE, PSATOTAL @MAMMOFINDINGS@ No results found. Recent Procedure Details No resulted procedures found. FOLLOWUP: Follow-up Information Return in about 6 months (around 01/20/2023) for BP Review. LOS Today OFFICE/OP EST [...] given to the patient. Patient (or patient licensing representative) demonstrates verbal understanding of instructions given. [...] blood pressure reading without diagnosis of hypertension Tachycardia Tachycardia, unspecified documented in this encounter Care Teams Revenue Coordinator Relationship Specialty Start Date End Date Tracy Soto PAC [address] [place] [address] PCP - General Physician Phlebotomy Support Tech 12/21/21 documented as of this encounter
--- OUTSIDE RECORDS SUMMARY | 2024-02-19 03:34 | XMS_ITS | Encounter Summary ---
Author Organization [employer] Care Team Providers Care Product Accountant Name Role Phone Tracy Soto PAC Primary Care Pro vider Encounter Details Date Type Department Care Team (Latest Contact Info) Description 02/21/2023 Travel Social History Tobacco Use Types Packs/Day Years Used Date Smoking Tobacco: Some Days Smokeless Tobacco: Never Alcohol Use Standard Drinks/Week Comments Yes 0 (1 standard drink = 0.6 oz pur e alcohol) [facility] Utilities Answer Date Recorded In the past 12 months has [employer], gas, oil, or water [employer] threatened to shut off services in your [...] How often do you attend chur or methodist services? Patient declined 02/21/2023 Do you belong to any clubs o r organizations such as druze groups, unions, fraternal or athletic groups, or [...] you are drinking? Patient does not drink 4 Q3: How often do you have si x or more drinks on one occasion? Never 02/21/2023 Overall Financial Resource Strain (CARDIA) Answe r Date Recorded How hard is it for you to pa y for the very basics like food, housing, medical care, and heating? Not very hard 02/21/2023 [facility] - Occupational Stress Questionnaire Answer Date [...] place to sleep or slept in a [place] health care facility (including now)? No 02/21/2023 Education Answer Date [...] on file documented as of this encounter Functional Status * Audit-C Score Answer Date of Assessment Author 1 02/21/2023 3:15 PM KNIFE EDGER Mychart, System Background * Within the last year, have you been humiliated or emotionally abused in other ways by your partner or ex-partner? Answer Date of Assessment Author No 02/21/2023 3:15 PM KNIFE EDGER Mychart, System Background * Within the last year, have you been afraid of your partner or ex-partner? Answer Date of Assessment Author No 02/21/2023 3:15 PM KNIFE EDGER Mychart, System Background * Within the last year, have you been raped or forced to have any kind of sexual activity by your partner or ex-partner? Answer Date of Assessment Author No 02/21/2023 3:15 PM KNIFE EDGER Mychart, System Background * Within the last year, have you been kicked, hit, slapped, or otherwise physically hurt by your partner or ex-partner? Answer Date of Assessment Author No 02/21/2023 3:15 PM KNIFE EDGER Mychart, System Background * Q1: How often do you have a drink containing alcohol? Answer Date of Assessment Author Monthly or less 02/21/2023 3:15 PM KNIFE EDGER Mychart, System Background * Q2: How many drinks containing alcohol do you have on a typical day when you are drinking? Answer Date of Assessment Author Patient does not drink 02/21/2023 3:15 PM KNIFE EDGER My chart, System Background * Q3: How often do you have six or more drinks on one occasion? Answer Date of Assessment Author Never 02/21/2023 3:15 PM KNIFE EDGER Mychart, System Background documented as of this encounter Plan of Treatment Not on file documented as of this encounter Visit Diagnoses Not on filedocumented in this encounter Care Teams Product Accountant Relationship Specialty Start Date End Date Tracy Soto PAC [address] [place] [address] PCP - General Physician Interior Mechanic 12/21/21 documented as of this encounter
--- OUTSIDE RECORDS SUMMARY | 2024-02-19 03:34 | XMS_ITS | Clinical Summary ---
Author Organization [facility] Address [address] [place] [address] Phone Care Team Providers Care Dinkey Engine Firer/Fireman Name Role Phone Tracy Stoo [facility] Primary Care Pro vider Allergies Active Allergy Reactions Criticality Noted Date Comments Amlodipine Other (see Comments) 04/23/2023 Side effects Medications varenicline (CHANTIX) 1 MG Tablet Take 1 Tablet by mouth 2 times daily. 60 Tablet 1 3 Active lisinopril (PRINIVIL, ZESTRIL) 40 MG Tablet Take 1 Tablet by mouth daily. 90 Tablet 3 4 Active hydroCHLOROthia zide 25 MG Tablet Take 1 Tablet by mouth daily. 90 Tablet 3 4 Active omeprazole (PriLOSEC) 20 MG CAPSULE DELAYED RELEASE Take 1 Capsule by mouth daily. 90 Capsule 3 4 Active methylPREDNISol one (MEDROL DOSPACK) 4 MG Tablet Therapy Pack Follow instructions on pack, take with food; Give one pack 1 Tablet 4 Active traMADol (ULTRAM) 50 MG TabletIndicatio ns:Neck pain Take 1 Tablet by mouth 2 times daily as needed for Moderate or more severe pain. 20 Tablet 4 Active Active Problems Problem Noted Date Diagnosed Date White coat syndrome with hypertension 07/21/2022 Left foot pain 07/21/2022 Family History Medical History Relation Name Comments Cancer Father Relation Name Status Comments Father Mother Alive Social History Tobacco Use Types Packs/Day Years Used Date Smoking Tobacco: Some Days Smokeless Tobacco: Never Tobacco Cessation:Ready to Q uit: No; Counseling Given: No Alcohol Use Standard Drinks/Week Comments Yes 0 (1 standard drink = 0.6 oz pur e alcohol) [facility] Utilities Answer Date Recorded In the past 12 months has th e electric, gas, oil, or water company threatened to [...] often do you attend chur ch or jain services? Patient declined 02/21/2023 Do you belong to any clubs o r organizations such as adventism groups, unions, fraternal or athletic groups, or [...] Total Score - Questions 1-9 0 04/12 [facility] Occupat ional Health - Occupational Stress [...] place to sleep or slept in a skilled nursing (including now)? No 02/21/2023 Education Answer Date [...] on file Sexual Orientation Not on file Last Filed Vital Signs Vital Sign Reading [...] Mass Index 28.35 07/06/2023 3:52 PM CDT Plan of Treatment Health Maintenance Due Date Last Done Comments Hepatitis C Virus (HCV) Screening 1975 TdaP Immunization 1975 Hepatitis B Immunization (1 of 3 - 19+ 3-dose series) 1994 Pneumococcal Immunization Combined (1 of 2 - PCV) 1994 Colonoscopy 2020 Colorectal Cancer Screening 2020 Influenza Immunization (#1) 2023 11/26/2015 SARS-COV-2 Immunization ( season) 2023 08/18/2021, 09/30/2020, 09/07/2020 Respiratory Syncytial Virus (RSV) Immunization (Adult) (1 - 1-dose 75+ series) 2050 Meningococcal Immunization (ACWY) Aged Out No longer eligible b ased on patient's age to complete this topic Rotavirus Immunization Aged Out No lo nger eligible based on patient's age to complete this topic [facility] Care Teams Dinkey Engine Firer/Fireman Relationship Specialty Start Date End Date Tracy Soto PAC [address] [place] [address] PCP - General Physician Rn Plastics 12/21/21
--- OUTSIDE RECORDS SUMMARY | 2024-02-19 03:34 | XMS_ITS | Encounter Summary ---
Author Organization [facility] Address [address] [place] [address] Phone Care Team Providers Care Hydroelectric Mechanic Name Role Phone Tracy Soto [facility] Primary Care Pro vider Reason for Visit * Reason Onset Date Comments Advice Only 07/04/2022 Encounter Details Date Type Department Care Team (Late st Contact Info) Description 07/04/2022 Telephone [facility] - [facility] Medicine - [place] [address] [place] [id number] Tracy Soto, LAURA [address] [place] [address] Advice Only Social History Tobacco Use Types Packs/Day Years [...] suspected to have Coronavirus/COVID-19? No / Unsure 06/26/2022 11:21 AM CDT documented as of this encounter Miscellaneous Notes * Telephone Encounter - Adri Herman RN - 07/04/2022 2:35 PM CDT Pt made appointment * Telephone Encounter - Adri Herman RN - 07/04/2022 1:33 PM CDT Unable to reach pt, lvm * Telephone Encounter - Tracy Soto PAC - 07/04/2022 1:17 PM CDT Is due for well visit and f/u Make appt Can address swelling in legs then Will likely order arterial doppler * Telephone Encounter - Adri Herman RN - 07/04/2022 11:28 AM CDT Pt states pain and swelling in leg have not gotten any better. States medrol dose pack did not help. Denies any other or new symptoms. Pt would like to know next steps of what to do. Please advise. documented in this encounter Plan of Treatment Not on file documented as of this encounter Visit Diagnoses Not on filedocumented in this encounter Care Teams Hydroelectric Mechanic Relationship Specialty Start Date End Date Tracy Soto, LAURA [address] [place] [address] PCP - General Physician Contact Representative 12/21/21 documented as of this encounter
--- OUTSIDE RECORDS SUMMARY | 2024-02-19 03:34 | XMS_ITS | Encounter Summary ---
Author Organization [facility] Address [address] [place] [address] Phone Care Team Providers Care Electron Beam Operator Name Role Phone Tracy Soto Primary Care Pro vider Reason for Referral * Consult, Test & Initiate Treatment (Routine) - Closed Specialty Diagnoses / Procedures Referred By Contkeven tatum Referred To Contact Diagnoses Colon cancer screening Tracy Soto PAC [address] [place] [address] Phone: tel: fax: [facility] [address] [place] [place] [address] Phone: tel: fax: Referral ID Status Reason Start Date Expiration Date Visits Re quested Visits Authorized [id number] Closed 05/28/2023 1 1 Scheduling Instructions Geoffrey is being referred to GI for or other specialist in patient's insurance network for screening colonoscopy. See below for Geoffrey's current medications, allergies and problem list. CURRENT MEDS: Current Outpatient Medications: hydroCHLOROthiazide (MICROZIDE) 12.5 MG Capsule, Take 1 Capsule by mouth daily., Disp: 30 Capsule, Rfl: 2 lisinopril (PRINIVIL, ZESTRIL) 40 MG Tablet, Take 1 Tablet by mouth daily., Disp: 90 Tablet, Rfl: 3 varenicline (CHANTIX) 1 MG Tablet, Take 1 Tablet by mouth 2 times daily., Disp: 60 Tablet, Rfl: 1 No current facility-administered medications for this visit. ALLERGIES: -- Amlodipine -- Other (see Comments) -- Side effects PROBLEM LIST: Patient Active Problem List: White coat syndrome with hypertension Left foot pain Reason for Visit * Reason Comments Hypertension Abdominal Pain Acid reflux Encounter Details Date Type Department Care Team (Late st Contact Info) Description 05/28/2023 4:00 PM CDT Office Visit [facility] - Internal Medicine - [place] [address] [place] [address] Tracy Soto PAC [address] [place] [address] Primary hypertension (Primary Dx); Colon cancer screening; Screening for malignant neoplasm of prostate; Well adult exam Discharge Disposition: Discharged to home or Selfcare Social History Tobacco Use Types Packs/Day Years Used Date Smoking Tobacco: Some Days Smokeless Tobacco: Never Tobacco Cessation:Ready to Q uit: No; Counseling Given: No Alcohol Use Standard Drinks/Week Comments Yes 0 (1 standard drink = 0.6 oz pur e alcohol) [facility] [employer] Answer Date Recorded In the past 12 months has my4oneone, gas, oil, or water mii threatened to shut off services in your [...] week 02/21/2023 How often do you attend [facility] or restorationism services? Patient declined 02/21/2023 Do you belong to any clubs o r organizations such as mandaen groups, unions, fraternal or athletic groups, or [...] Total Score - Questions 1-9 0 04/12 [facility] [place] [facility] Occupat ional Health - Occupational Stress [...] place to sleep or slept in a longterm (including now)? No 02/21/2023 Education Answer Date [...] Sign Reading Time Taken Comments Blood Pressure 172/82 05/28/2023 3:43 PM CDT Pulse 74 05/28/2023 3:43 PM CDT Temperature 36.6 ??C (97.8 ??F) 05/28/2023 3:43 PM CD T Respiratory Rate 12 05/28/2023 3:43 PM CDT Oxygen Saturation 97% 05/28/2023 3:43 PM CDT Inhaled Oxygen Concentration - - Weight 82.1 kg (181 lb) 05/28/2023 3:43 PM CDT Height 170.2 cm (5' 7 ) 05/28/2023 3:43 PM CDT Body Mass Index 28.35 05/28/2023 3:43 PM CDT documented in this encounter Progress Notes * Macy Parada, RMA - 05/28/2023 4:00 PM CDT Geoffrey Walker, 48 y.o., male is here for Hypertension and Abdominal Pain Medication Refills: Patient reports/denies need for medication refills. Orders Pended: no Requested Prescriptions No prescriptions requested or ordered in this encounter Home Medications Medication Sig Start Date End Date Taking? Authorizing Provider hydroCHLOROthiazide (MICROZIDE) 12.5 MG Capsule Take 1 Capsule by mouth daily. 04/23/23 Tracy Soto PAC lisinopril (PRINIVIL, ZESTRIL) 40 MG Tablet Take 1 Tablet by mouth daily. 02/21/23 Tracy Soto PAC varenicline (CHANTIX) 1 MG Tablet Take 1 Tablet by mouth 2 times daily. 01/22/23 Jorge Soto PAC There are no discontinued medications. [...] Health Maintenance Due Topic Date Due Hepatitis C Virus (HCV) Screening Never done TdaP Immunization Never done Pneumococcal Immunization Combined (1 of 2 - PCV) Never done Hepatitis B Immunization (1 of 3 - 19+ 3-dose series) Never done Colorectal Cancer Screening Never done SARS-COV-2 Immunization ( season) 2022 Orders Pended: no The following BPA's have been addressed with the patient today: BMI * Tracy Soto PAC - 05/28/2023 4:00 PM CDT Chief Complaint: Chief Complaint Patient presents with Hypertension Abdominal Pain Acid reflux Assessment/Plan: Diagnoses and all orders for this visit: Primary hypertension Colon cancer screening - EXTERNAL COLONOSCOPY REFERRAL; Future Screening for malignant neoplasm of prostate - PSA SCREEN; Future Well adult exam - CMP (COMPREHENSIVE METABOLIC PANEL); Future - HEMOGLOBIN A1C W/ ESTIMATED GLUCOSE; Future - THYROID STIMULATING HORMONE (TSH); Future - COMPLETE BLOOD COUNT (CBC) WITH DIFF; Future - LIPID PANEL; Future Other orders - hydroCHLOROthiazide 25 MG Tablet; Take 1 Tablet by mouth daily. - omeprazole (PriLOSEC) 20 MG CAPSULE DELAYED RELEASE; Take 1 Capsule by mouth daily. Increase BP med BP log BID F/u in 2 wks GERD sx Trial of PPI Address at f/u Labs due in August Colon CA screening due in August Subjective: Mr. Geoffrey Walker is a 48 y.o. male here today for above. BP check On BP meds BP still elevated GERD check Using pepcid Sx fluctuate ROS: Review of Systems Gastrointestinal: Positive for heartburn. VITAL SIGNS: BP Readings from Last 3 Encounters: 05/28/23 172/82 04/23/23 142/74 02/21/23 190/84 Wt Readings from Last 3 Encounters: 05/28/23 181 lb (82.1 kg) 04/23/23 175 lb 9.6 oz (79.7 kg) 02/21/23 181 lb (82.1 kg) Vitals: 05/28/23 1543 BP: 172/82 BP Location: Left Arm BP Position: Sitting BP Cuff Size: Regular Pulse: 74 Resp: 12 Temp: 97.8 ??F (36.6 ??C) TempSrc: Temporal SpO2: 97% Weight: 181 lb (82.1 kg) Height: 5' 7 (1.702 m) Body mass index is 28.35 kg/m??. PHYSICAL EXAM: Physical Exam Vitals reviewed. Constitutional: Appearance: Normal appearance. HENT: Head: Normocephalic and atraumatic. Cardiovascular: Rate and Rhythm: Regular rhythm. Heart sounds: Normal heart sounds. Pulmonary: Breath sounds: Normal breath sounds. Abdominal: General: Bowel sounds are normal. Palpations: Abdomen is soft. Skin: General: Skin is warm. Neurological: General: [...] found. FOLLOWUP: Follow-up Information Return in about 3 months (around 08/27/2023) for Yearly Preventive Care (EXTENDED VISIT). LOS Today OFFICE/OP EST LVL 3 LOW [...] given to the patient. Patient (or patient delivery representative) demonstrates verbal understanding of instructions given. [...] Scheduled Referrals Name Type Priority Associated Diagnoses Order Schedule EXTERNAL COLONOSCOPY REFERRAL Outpatient Referral Routine Colon cancer screening Expected: 05/28/2023, Expires: 05/27/2024 documented as of this encounter Results * LIPID PANEL (07/07/2023 11:37 AM CDT) CHOLESTEROL 166 <200 mg/dL 07/07/2023 1:17 PM CDT [facility] TRIGLYCERIDES 60 <150 mg/dL 07/07/2023 1:17 PM CDT [facility] HDL CHOLESTEROL 53 >40 mg/dL 1:17 PM CDT [facility] LDL 101 <130 mg/dL 07/07/2023 1:17 PM [facility]T [facility] VLDL 12 10 - 50 mg/dL 07/07/2023 1:17 PM CDT [facility] CHOL/HDL RATIO 3.1 0.0 - 4.4 07/07/2023 1:17 PM CDT [facility] NON-HDL CHOLESTEROL 113 <130 mg/dL 07/07/2023 1:17 PM CDT [facility] IS THE PATIENT REQUIRED TO BE FASTING? Yes 07/07/2023 1:17 PM CDT [facility] HAS THE PATIENT BEEN FASTING? Yes 07/07/2023 1:17 PM CDT [facility] Blood Venipuncture / Unknown 07/07/2023 11:37 AM CDT 07/07/2023 12:21 PM CDT Tracy Soto PAC CHEMISTRY ORDERAB LES Final Result Performing Organization Address City/[facility]/ZIP Co de Phone Number [facility] [address] [place] [address] * THYROID STIMULATING HORMONE (TSH) (07/07/2023 11:37 AM CDT) TSH 0.767 0.300 - 5.000 mIU/L 07/07/2023 1:33 PM CDT [facility] Blood Venipuncture / Unknown 07/07/2023 11:37 AM CDT 07/07/2023 12:21 PM CDT Tracy Soto PAC CHEMISTRY ORDERAB LES Final Result [facility] [address] [place] [address] * HEMOGLOBIN A1C W/ ESTIMATED GLUCOSE (07/07/2023 11:37 AM CDT) HGB-A1C 5.8 4.0 - 6.0 % 07/07/2023 12:43 PM CDT [facility] Est Average Glucose 119.8 mg/dL 07/07/2023 12:43 PM CDT [facility] Blood Venipuncture / Unknown 07/07/2023 11:37 AM CDT 07/07/2023 12:22 PM CDT Narrative [facility] - 07/07/2023 12:43 PM CDT HEMOGLOBIN A1C: DIABETIC PATIENTS: WELL-CONTROLLED: ?? 6.2 - 7.0 INTERMEDIATE WELL-CONTROLLED: ??7.0 - 9.0 POORLY-CONTROLLED: ??>9.0 us Tracy Soto PAC CHEMISTRY ORDERAB LES Final Result [facility] [address] [place] [address] * (ABNORMAL) CMP (COMPREHENSIVE METABOLIC PANEL) (07/07/2023 11:37 AM CDT) SODIUM 144 136 - 145 mmol/L 07/07/2023 1:17 PM CDT [facility] POTASSIUM 4.0 3.5 - 5.1 mmol/L 07/07/2023 1:17 PM CDT [facility] CHLORIDE 110(H) 98 - 107 mmol/L 07/07/2023 1:17 PM CDT [facility] CO2, VENOUS 27 22 - 30 mmol/L 07/07/2023 1:17 PM CDT [facility] ANION GAP 11.0 <18.0 mmol/L 07/07/2023 1:17 PM CDT [facility] GLUCOSE 92 70 - 99 mg/dL 07/07/2023 1:17 PM CDT [facility] BUN 8(L) 9 - 21 mg/dL 07/07/2023 1:17 PM CDT [facility] CREATININE, BLOOD 1.14 0.70 - 1.30 mg/dL 07/07/2023 1:17 PM CDT [facility] BUN/CREATININE RATIO 7(L) 12 - 20 ratio 07/07/2023 1:17 PM CDT [facility] TOTAL PROTEIN 6.8 6.3 - 8.2 g/dL 07/07/2023 1:17 PM CDT [facility] ALBUMIN 4.1 3.5 - 5.0 g/dL 07/07/2023 1:17 PM T [facility] A/G RATIO 1.5 1.0 - 2.2 07/07/2023 1:17 PM CDT [facility] CALCIUM 9.1 8.7 - 10.5 mg/dL 07/07/2023 1:17 PM CDT [facility] T BILI 0.3 0.2 - 1.2 mg/dL 07/07/2023 1:17 PM CDT [facility] SGOT (AST) 16 5 - 34 U/L 07/07/2023 1:17 PM T [facility] SGPT (ALT) 17 0 - 55 U/L 07/07/2023 1:17 PM T [facility] ALKALINE PHOSPHATASE 67 40 - 150 U/L 07/07/2023 1:17 PM [facility] IS THE PATIENT REQUIRED TO BE FASTING? No 07/07/2023 1:17 PM CDT [facility] GFR, ESTIMATED >60 >=60 07/07/2023 1:17 PM T [facility] Comment: Creatinine Clearance is the preferred criteria for selecting drug dose adjustments in renally impaired patients. ??The GFR is provided as additional pertinent clinical information. GFR is reported in mL/min/1.73 sq m. Calculation based on the Chronic Kidney Disease Epidemiology Collaboration (CKD- EPI) equation refit without adjustment for race. GFR, EST. >60 >=60 024 1:17 PM CDT [facility] GFR, EST. NONAFRICAN >60 >=60 07/07/2023 1:17 PM [facility] Blood Venipuncture / Unknown 07/07/2023 11:37 AM CDT 07/07/2023 12:21 PM CDT Tracy Soto PAC CHEMISTRY ORDERAB LES Final Result Performing Organization Address City/[facility] Co de Phone Number [facility] [place] [address] * PSA SCREEN (07/07/2023 11:37 AM CDT) PSA SCREEN, TOTAL 1.42 <4.00 ng/mL 07/07/2023 2:10 PM CDT [facility] Blood Venipuncture / Unknown 07/07/2023 11:37 AM CDT 07/07/2023 12:21 PM CDT Narrative [facility] - 07/07/2023 2:10 PM CDT The [employer] Total PSA assay is a Chemiluminescent Microparticle Immunoassay (CMIA) for the quantitative determination of total PSA (both free PSA and PSA complexed to [id number]) in human serum. Total PSA values obtained with different assay methods, including Franks PSA assays, cannot be used interchangeably. Result [facility] Tracy Soto PAC CHEMISTRY ORDERAB LES Final Result Performing Organization Address [facility] Co de Phone Number [facility] [place] [address] documented in this encounter Visit Diagnoses Diagnosis Primary hypertension- Primary Unspecified essential hypertension Colon cancer screening Special screening for malignant neoplasms, colon Screening for malignant neoplasm of prostate Well adult exam Routine general medical examination at a health care facility documented in this encounter Additional Health Concerns Assessment Noted Time PHQ-9 Depression Total Score: 0 04/23/19 24 3:35 PM CDT documented as of this encounter Care Teams Electron Beam Operator Relationship Specialty Start Date End Date Tracy Soto PAC [address] [place] [address] PCP - General Physician Online Marketing Specialist 12/21/21 documented as of this encounter
--- OUTSIDE RECORDS SUMMARY | 2024-02-19 03:34 | XMS_ITS | Encounter Summary ---
Author Organization [facility] Care Team Providers Care Correspondence Review Clerk Name Role Phone Tracy Soto PAC Primary Care Pro vider Encounter Details Date Type Department Care Team (Latest Contact Info) Description 06/26/2022 Travel Social History Tobacco Use Types Packs/Day [...] AM CDT documented as of this encounter Functional Status * Question Answer Date of Assessment Author Little interest or pleasure in doing things Not at all 06/26/2022 11:00 AM TIBURCIOT Macy Parada RMA Feeling down, depressed, or hopeless Not at all 06/26/2022 11:00 AM CDT Macy Parada RMA * Over the past 2 weeks, how often have you been bothered by any of the following problems? Question Answer Date of Assessment Author Patient Health Questionnaire -2 Score 0 06/26/2022 11:00 AM CDT Macy Parada RMA documented as of this encounter Plan of Treatment Not on file documented as of this encounter Visit Diagnoses Not on filedocumented in this encounter Care Teams Correspondence Review Clerk Relationship Specialty Start Date End Date Tracy Soto PAC [address] [place] [address] PCP - General Physician Asphalt Engineer 12/21/21 documented as of this encounter
--- OUTSIDE RECORDS SUMMARY | 2024-02-19 03:34 | XMS_ITS | Encounter Summary ---
Author Organization [facility] Care Team Providers Care Medical Assistant Name Role Phone Tracy Soto PAC Primary Care Pro vider Encounter Details Date Type Department Care Team (Latest Contact Info) Description 07/05/2022 Travel Social History Tobacco Use Types Packs/Day [...] suspected to have Coronavirus/COVID-19? No / Unsure 07/05/2022 2:25 PM CDT documented as of this encounter Plan of Treatment Not on file documented as of this encounter Visit Diagnoses Not on filedocumented in this encounter Care Teams Medical Assistant Relationship Specialty Start Date End Date Tracy Soto PAC [address] [place] [address] PCP - General Physician National Sales Manager 12/21/21 documented as of this encounter
--- OUTSIDE RECORDS SUMMARY | 2024-02-19 03:34 | XMS_ITS | Encounter Summary ---
Author Organization [employer] [facility] Care Team Providers Care Information And Data Architect Analyst Name Role Phone Tracy Soto PAC Primary Care Pro vider Encounter Details Date Type Department Care Team (Latest Contact Info) Description 01/22/2023 Travel Social History Tobacco Use Types Packs/Day [...] on filedocumented in this encounter Care Teams Information And Data Architect Analyst Relationship Specialty Start Date End Date Tracy Soto PAC [address] [place] [address] PCP - General Physician Ivf Embryologist 12/21/21 documented as of this encounter
--- OUTSIDE RECORDS SUMMARY | 2024-02-19 03:34 | XMS_ITS | Encounter Summary ---
Author Organization [facility] Address [address] [place] [address] Phone Care Team Providers Care Electrical And Radio Aircraft Mechanic Name Role Phone Tracy Soto Primary Care Pro vider Reason for Visit * Reason Onset Date Comments Results 06/26/2022 Encounter Details Date Type Department Care Team (Late st Contact Info) Description 06/26/2022 Telephone [facility] - Internal Medicine - [place] [address] [place] [id number] Tracy Soto, LAURA [address] [place] [address] Results Social History Tobacco Use Types Packs/Day Years [...] things Not at all 06/26/2022 11:00 AM CDT Macy Parada RMA Feeling down, depressed, or hopeless Not at all 06/26/2022 11:00 AM CDT Macy Parada RMA * Over the past 2 weeks, how often have you been bothered by any of the following problems? Question Answer Date of Assessment Author Patient Health Questionnaire -2 Score 0 06/26/2022 11:00 AM CDT Macy Parada RMA documented as of this encounter Miscellaneous Notes * Telephone Encounter - Adri Herman RN - 06/27/2022 11:00 AM CDT Pt aware and verbalizes understanding * Telephone Encounter - Tracy Soto PAC - 06/26/2022 4:43 PM CDT With doppler negative, pt advised to take medrol dose pack and f/u * Telephone Encounter - Adri Herman RN - 06/26/2022 4:30 PM CDT Unable to reach, lvm to return call * Telephone Encounter - Adri Herman RN - 06/26/2022 4:30 PM CDT ----- Message from LAURA Blair sent at 06/26/2022 4:24 PM CDT ----- No new orders * Telephone Encounter - Adri Herman RN - 06/26/2022 4:30 PM CDT ----- Message from LAURA Blair sent at 06/26/2022 4:02 PM CDT ----- Neg for DVT Call pt today documented in this encounter Plan of Treatment Not on file documented as of this encounter Visit Diagnoses Not on filedocumented in this encounter Care Teams Electrical And Radio Aircraft Mechanic Relationship Specialty Start Date End Date Tracy Soto PAC [address] [place] [address] PCP - General Physician Web Designer 12/21/21 documented as of this encounter
--- OUTSIDE RECORDS SUMMARY | 2024-02-19 03:34 | XMS_ITS | Encounter Summary ---
Author Organization [facility] Address [address] [place] [address] Phone Care Team Providers Care Sweater Operator Name Role Phone Tracy Soto PAC Primary Care Pro vider Reason for Visit * Reason Comments Hypertension Encounter Details Date Type Department Care Team (Late st Contact Info) Description 02/21/2023 3:30 PM PIGMENT SUPPLIER Office Visit [facility] - Internal Medicine - [place] [address] [place] [id number] Tracy Soto, [facility] [address] [facility] [place] [address] Primary hypertension (Primary Dx) Discharge Disposition: Discharged to home or Selfcare Social History Tobacco Use Types Packs/Day Years Used Date Smoking Tobacco: Some Days Smokeless Tobacco: Never Tobacco Cessation:Ready to Q uit: No; Counseling Given: No Alcohol Use Standard Drinks/Week Comments Yes 0 (1 standard drink = 0.6 oz pur e alcohol) [facility] Utilities Answer Date Recorded In the past 12 months has [employer] electric, gas, oil, or water company threatened [...] week 02/21/2023 How often do you attend [facility] or anabaptist services? Patient declined 02/21/2023 Do you belong to any clubs o r organizations such as sabianism groups, unions, fraternal or athletic groups, or [...] care, and heating? Not very hard 02/21/2023 [facility] - Occupational Stress Questionnaire Answer Date Recorded [...] Sign Reading Time Taken Comments Blood Pressure 190/84 02/21/2023 3:25 PM PIGMENT SUPPLIER Pulse 67 02/21/2023 3:25 PM PIGMENT SUPPLIER Temperature 36.3 ??C (97.3 ??F) 02/21/2023 3:25 PM CS T Respiratory Rate 12 02/21/2023 3:25 PM PIGMENT SUPPLIER Oxygen Saturation 98% 02/21/2023 3:25 PM PIGMENT SUPPLIER Inhaled Oxygen Concentration - - Weight 82.1 kg (181 lb) 02/21/2023 3:25 PM PIGMENT SUPPLIER Height 170.2 cm (5' 7 ) 02/21/2023 3:25 PM PIGMENT SUPPLIER Body Mass Index 28.35 02/21/2023 3:25 PM PIGMENT SUPPLIER documented in this encounter Functional Status * Audit-C Score Answer Date of Assessment Author 1 02/21/2023 3:15 PM PIGMENT SUPPLIER [employer], System Background * Within the last year, have you been humiliated or emotionally abused in other ways by your partner or ex-partner? Answer Date of Assessment Author No 02/21/2023 3:15 PM PIGMENT SUPPLIER [employer], System Background * Within the last year, have you been afraid of your partner or ex-partner? Answer Date of Assessment Author No 02/21/2023 3:15 PM PIGMENT SUPPLIER [employer], System Background * Within the last year, have you been raped or forced to have any kind of sexual activity by your partner or ex-partner? Answer Date of Assessment Author No 02/21/2023 3:15 PM PIGMENT SUPPLIER [employer], System Background * Within the last year, have you been kicked, hit, slapped, or otherwise physically hurt by your partner or ex-partner? Answer Date of Assessment Author No 02/21/2023 3:15 PM PIGMENT SUPPLIER Mychart, System Background * Q1: How often do you have a drink containing alcohol? Answer Date of Assessment Author Monthly or less 02/21/2023 3:15 PM PIGMENT SUPPLIER [employer], System Background * Q2: How many drinks containing alcohol do you have on a typical day when you are drinking? Answer Date of Assessment Author Patient does not drink 02/21/2023 3:15 PM PIGMENT SUPPLIER My chart, System Background * Q3: How often do you have six or more drinks on one occasion? Answer Date of Assessment Author Never 02/21/2023 3:15 PM PIGMENT SUPPLIER Mychart, System Background documented as of this encounter Patient Instructions * Patient Instructions* Macy Parada, RMStacie - 02/21/2023 3:30 PM PIGMENT SUPPLIER Images from the original note were not [...] require a prescription and some youcan purchase [id number]. Medicines may have nicotine in them to [...] for support and encouragement. Call telephone quitlines (5-204-ELSGNOW), reach out to support groups, or work [...] provider. Document Revised: 10/07/2021 Document Reviewed: 04/19/2019 [employer] Patient Education ?? 2021 [employer] Health Risks of Smoking Smoking tobacco [...] assistance. You can also visit: ??? [place] Quitline Consortium: www.[employer] E[employer].org or call 0-847-IPWK-NOW. ??? U.S. Department of Health and Human Services: www.smokefree.gov ??? [place] Lung Association: www.freedomfromsmoking.org ??? [place] Heart Association: www.heart.org Where to find more [...] provider. Document Revised: 10/03/2021 Document Reviewed: 03/15/2020 [employer] Patient Education ?? 2021 [employer] ENT SUPPLIER documented in this encounter Progress Notes * Macy Parada RMA - 02/21/2023 3:30 PM CST Geoffrey Walker, 47 y.o., male is here for Hypertension Medication Refills: Patient reports/denies need for medication refills. Orders Pended: no Requested Prescriptions No prescriptions requested or ordered in this encounter Home Medications Medication Sig Start Date End Date Taking? Authorizing Provider lisinopril (PRINIVIL, ZESTRIL) 20 MG Tablet Take 1 Tablet by mouth daily. 02/02/23 Tracy Soto PAC varenicline (CHANTIX) 1 MG [...] Never done ??? Pneumococcal Immunization Combined (1 of 2 - PCV) Never done ??? DTaP/Tdap/Td Immunization (1 - Tdap) Never done ??? Colorectal Cancer Screening Never done ??? Influenza Immunization (1) 10/13/2022 ??? SARS-COV-2 Immunization ( season) 2022 Orders Pended: no The following BPA's have been addressed with the patient today: BMI ENT SUPPLIER * Tracy Soto PAC - 02/21/2023 3:30 PM CST Chief Complaint: Chief Complaint Patient presents with ??? Hypertension Assessment/Plan: Diagnoses and all orders for this visit: Primary hypertension Other orders - lisinopril (PRINIVIL, ZESTRIL) 40 MG Tablet; Take 1 Tablet by mouth daily. - cloNIDine (CATAPRES) 0.1 MG Tablet; Take one tablet twice day NEEDED if blood pressure if 170/90 or higher BP elevated Adjust BP med Lisinopril 40 mg daily Add clonidine PRN BP log F/u 1 week Subjective: Mr. Geoffrey Walker is a 47 y.o. male here today for above. BP check BP elevated Tolerating med Taking med daily now BP log on watch No complaints ROS: Review of Systems All other systems reviewed and are negative. VITAL SIGNS: BP Readings from Last 3 Encounters: 02/21/23 190/84 01/22/23 150/86 07/21/22 (!) 140/92 Wt Readings from Last 3 Encounters: 02/21/23 181 lb (82.1 kg) 01/22/23 174 lb (78.9 kg) 07/21/22 165 lb (74.8 kg) Vitals: 02/21/23 1525 BP: 190/84 BP Location: Left Arm BP Position: Sitting BP Cuff Size: Regular Pulse: 67 Resp: 12 Temp: 97.3 ??F (36.3 ??C) TempSrc: Temporal SpO2: 98% Weight: 181 [...] motion. Skin: General: Skin is warm. Neurological: General: [...] found. FOLLOWUP: Follow-up Information Return in about 2 weeks (around 03/07/2023) for BP Review. LOS Today OFFICE/OP EST [...] given to the patient. Patient (or patient physician relations representative) demonstrates verbal understanding of instructions given. [...] our referral team or the referring physician. ENT SUPPLIER documented in this encounter Plan of Treatment Not on file documented as of this encounter Visit Diagnoses Diagnosis Primary hypertension- Primary Unspecified essential hypertension documented in this encounter Care Teams Sweater Operator Relationship Specialty Start Date End Date Tracy Soto PAC [address] [place] [address] PCP - General Physician Gunstock Repairer 12/21/21 documented as of this encounter
--- OUTSIDE RECORDS SUMMARY | 2024-02-19 03:34 | XMS_ITS | Encounter Summary ---
Author Organization [employer] Care Team Providers Care Raw Juice Weigher Name Role Phone Tracy Soto PAC Primary Care Pro vider Encounter Details Date Type Department Care Team (Latest Contact Info) Description 07/21/2022 Travel Social History Tobacco Use Types Packs/Day [...] on filedocumented in this encounter Care Teams Raw Juice Weigher Relationship Specialty Start Date End Date Tracy Soto PAC [address] [place] [address] PCP - General Physician Traffic Control Flagger 12/21/21 documented as of this encounter
--- OUTSIDE RECORDS SUMMARY | 2024-02-19 03:34 | XMS_ITS | Encounter Summary ---
Author Organization [facility] Address [address] [place] [address] Phone Care Team Providers Care Power Plant Supervisor Name Role Phone Tracy Soto Primary Care Pro vider Reason for Referral * Radiology Services (Routine) - Closed Specialty Diagnoses / Procedures Referred By Contac t Referred To Contact Radiology Diagnoses Left leg swelling Procedures US ANKLE/BRACHIAL INDICES Tracy Soto PAC [address] [place] [address] Phone: tel: fax: Referral ID Status Reason Start Date Expiration Date Visits Re quested Visits Authorized [id number] Closed 07/05/2022 1 1 Reason for Visit * Reason Comments Leg Swelling Follow up Encounter Details Date Type Department Care Team (Late st Contact Info) Description 07/05/2022 3:15 PM CDT Office Visit [facility] - Internal Medicine - [place] [address] [place] [address] Tracy Soto PAC [address] [place] [address] Left leg swelling (Primary Dx) Discharge Disposition: Discharged to home [...] Sign Reading Time Taken Comments Blood Pressure 140/86 07/05/2022 3:16 PM CDT Pulse 92 07/05/2022 3:16 PM CDT Temperature 36.2 ??C (97.1 ??F) 07/05/2022 3:16 PM CD T Respiratory Rate 12 07/05/2022 3:16 PM CDT Oxygen Saturation 98% 07/05/2022 3:16 PM CDT Inhaled Oxygen Concentration - - Weight 77.6 kg (171 lb) 07/05/2022 3:16 PM CDT Height 170.2 cm (5' 7 ) 07/05/2022 3:16 PM CDT Body Mass Index 26.78 07/05/2022 3:16 PM CDT documented in this encounter Patient Instructions * Patient Instructions* Macy Parada RMA - 07/05/2022 3:15 PM CDT Images from the original note were not included. Pneumonia is a serious lung infection that can make you very sick. There are now two vaccines recommended by the Center for Disease Control and Prevention (CDC) to protect against pneumonia for all patients who are 65 years and older and patients under 65 with certain conditions that put them at a higher risk. Request your pneumonia vaccines at your Primary Care Physician???s office or your localpharmacy. Steps to Quit Smoking Smoking tobacco is [...] require a prescription and some youcan purchase [id number]. Medicines may have nicotine in them to [...] for support and encouragement. Call telephone quitlines (2-076-AOGL-NOW), reach out to support groups, or work [...] provider. Document Revised: 10/07/2021 Document Reviewed: 04/19/2019 [employer] Patient Education ?? 2021 [employer] Health Risks of Smoking Smoking tobacco [...] children increases the risk of: ??? Sudden infant syndrome (SIDS). ??? Infections in the nose, [...] assistance. You can also visit: ??? [place] Quitline Consortium: www.naquitline.org or call 5-125-QKKO-NOW. ??? U.S. Department of Health and Human Services: www.smokefree.gov ??? [place] Lung Association: www.freedomfromsmoking.org ??? [place] Heart Association: www.heart.org Where to find more [...] Reviewed: 03/15/2020 Elsevier Patient Education ?? 2021 [employer] documented in this encounter Progress Notes * Macy Parada RMA - 07/05/2022 3:15 PM CDT Geoffrey Walker, 47 y.o., male is here for Leg Swelling (Follow up ) Medication Refills: Patient reports/denies need for medication refills. Orders Pended: no Requested Prescriptions No prescriptions requested or ordered in this encounter Home Medications Medication Sig Start Date End Date Taking? Authorizing Provider cyclobenzaprine (FLEXERIL) 10 MG Tablet TAKE 1 TABLET BY MOUTH TWICE A DAY NEEDED FOR MUSCLE SPASMS 12/07/21 Yes Lana Crockett MD methylPREDNISolone (MEDROL DOSPACK) 4 MG Tablet Therapy Pack Follow instructions on pack, take withfood; Give one pack 06/26/22 Yes Tracy Soto PAC naproxen (NAPROSYN) 500 MG Tablet Take 500 mg by mouth 2 times daily (with meals). 12/07/21 Yes ProviderLana MD There are no discontinued medications. I have [...] been addressed with the patient today: BMI, Pneumonia, Colonoscopy and Smoking * Tracy Soto PAC - 07/05/2022 3:15 PM CDT Chief Complaint: Chief Complaint Patient presents with ??? Leg Swelling Follow up Assessment/Plan: Diagnoses and all orders for this visit: Left leg swelling - US ANKLE/BRACHIAL INDICES; Future Other orders - furosemide (LASIX) 20 MG Tablet; Take one daily for 3-5 days and then as needed after - indomethacin (INDOCIN) 25 MG Capsule; One tablet twice a day for 5 days then as needed thereafter L LE venous doppler neg for DVT Xray not significant Uric acid normal Will Rx lasix, indomethacin, arterial dopplers F/u 2 wks If sx persist, re check xray, refer to ortho; consider vascular Subjective: Mr. Geoffrey Walker is a 47 y.o. male here today for above. L foot swelling persists Venous doppler negative L foot pain from the swelling No SOB No other sx Denies trauma No other acute c/o ROS: Review of Systems Musculoskeletal: L leg pain VITAL SIGNS: BP Readings from Last 3 Encounters: 07/05/22 140/86 06/26/22 172/80 12/21/21 150/84 Wt Readings from Last 3 Encounters: 07/05/22 171 lb (77.6 kg) 12/21/21 160 lb 1.6 oz (72.6 kg) Vitals: 07/05/22 1516 BP: 140/86 BP Location: Left Arm BP Position: Sitting BP Cuff Size: Regular Pulse: 92 Resp: 12 Temp: 97.1 ??F (36.2 ??C) TempSrc: Temporal SpO2: 98% Weight: 171 lb (77.6 kg) Height: 5' 7 (1.702 m) Body mass index is 26.78 kg/m??. PHYSICAL EXAM: Physical Exam Vitals reviewed. Constitutional: Appearance: Normal appearance. Pulmonary: Effort: Pulmonary effort is normal. Breath sounds: Normal breath sounds. Musculoskeletal: General: Swelling present. Left lower leg: Edema present. Comments: LEFT leg edema Good radial pulse Skin: General: Skin is warm. Neurological: General: No focal deficit present. Mental Status: He is alert. Mental status [...] Information Return in about 2 weeks (around 07/19/2022) for Acute symptom check. LOS Today OFFICE/OP [...] given to the patient. Patient (or patient student services representative) demonstrates verbal understanding of instructions given. [...] on file documented as of this encounter Results * US ANKLE/BRACHIAL INDICES (07/19/2022 11:17 AM CDT) Anatomical Region Laterality Modality vascular N/A Ultrasound 07/19/2022 12:5 9 PM CDT Impressions 07/19/2022 1:02 PM CDT IMPRESSION: No evidence of large vessel arterial insufficiency at rest bilateral lower extremities. Evidence of small-vessel disease on the right Narrative 07/19/2022 1:02 PM CDT EXAM DESCRIPTION: ?US ANKLE/BRACHIAL INDICES REASON FOR STUDY: ?? LEFT leg swelling, rest pain x 2-3 months ? TECHNIQUE: Brachial blood pressure obtained. Pressures obtained of the peripheral vessels at the level of the ankle. ??Ankle brachial indices calculated. Spectral waveforms recorded posterior tibial, dorsalis pedis and great toe positions COMPARISON: ?? None available FINDINGS: Right leg: Right-sided ankle-brachial index is 1.32. Spectral Doppler waveforms demonstrate normal triphasic pattern. Right-sided great toe waveform demonstrates moderate dampening as evidence of small-vessel disease. Left leg: Left-sided ankle-brachial index is 1.21. Left-sided spectral Doppler waveform demonstrates normal triphasic pattern. Left-sided great toe waveform is maintained. THIS IS AN ELECTRONICALLY VERIFIED FINAL REPORT 07/19/2022 12:59 PM - Electronically signed by ??Janes Peacock M.D. RB: NATI D: ??07/19/2022 12:59 PM T: ??07/19/2022 12:59 PM Report ID: [id number] Reading Location: ??[id number] Procedure Note Janes Peacock MD - 07/19/2022 EXAM DESCRIPTION: US ANKLE/BRACHIAL INDICES REASON FOR STUDY: LEFT leg swelling, rest pain x 2-3 months TECHNIQUE: Brachial blood pressure obtained. Pressures obtained of the peripheral vessels at the level of the ankle. Ankle brachial indices calculated. Spectral waveforms recorded posterior tibial, dorsalis pedis and great toe positions COMPARISON: None available FINDINGS: Right leg: Right-sided ankle-brachial index is 1.32. Spectral Doppler waveforms demonstrate normal triphasic pattern. Right-sided great toe waveform demonstrates moderate dampening as evidence of small-vessel disease. Left leg: Left-sided ankle-brachial index is 1.21. Left-sided spectral Doppler waveform demonstrates normal triphasic pattern. Left-sided great toe waveform is maintained. THIS IS AN ELECTRONICALLY VERIFIED FINAL REPORT 07/19/2022 12:59 PM - Electronically signed by Janes Peacock M.D. RB: NATI Report ID: [id number] Reading Location: [id number] IMPRESSION: No evidence of large vessel arterial insufficiency at rest bilateral lower extremities. Evidence of small-vessel disease on the right Tracy Soto PAC IMG US ORDERABLES Final Result documented in this encounter Visit Diagnoses Diagnosis Left leg swelling- Primary Left leg swelling documented in this encounter Care Teams Power Plant Supervisor Relationship Specialty Start Date End Date Tracy Soto, PAC [address] [place] [address] PCP - General Physician Road Cleaner 12/21/21 documented as of this encounter
--- OUTSIDE RECORDS SUMMARY | 2024-02-19 03:34 | XMS_ITS | Encounter Summary ---
Author Organization [facility] Address [address] [facility] [place] [address] Phone Care Team Providers Care Paper Twister Tender Name Role Phone Tracy Soto PAC Primary Care Pro vider Reason for Referral * Radiology Services (Routine) - Closed Specialty Diagnoses / Procedures Referred By Contac t Referred To Contact Radiology Diagnoses Left leg swelling Procedures US ANKLE/BRACHIAL INDICES Tracy Soto, PAC [address] [place] [address] Phone: tel: fax: Referral ID Status Reason Start Date Expiration Date Visits Re quested Visits Authorized [id number] Closed 07/05/2022 1 1 Reason for Visit * Radiology Services (Routine) - Closed Specialty Diagnoses / Procedures Referred By Contac t Referred To Contact Radiology Diagnoses Left leg swelling Procedures US ANKLE/BRACHIAL INDICES Tracy Soto, PAC [address] [place] [address] Phone: tel: fax: Referral ID Status Reason Start Date Expiration Date Visits Re quested Visits Authorized [id number] Closed 07/05/2022 1 1 Encounter Details Date Type Department Care Team (Latest Contact Info) Description 07/19/2022 10:46 AM CDT - 07/19/2022 11:59 PM CDT Hospital Encounter [facility] Ul[facility]ound [address] [facility] [address] Tracy Soto, PAC [address] [place] [address] Discharge Disposition: Discharged to home or Selfcare [...] suspected to have Coronavirus/COVID-19? No / Unsure 07/19/2022 10:41 AM CDT documented as of this encounter Medications at Time of Discharge cyclobenzaprine (FLEXERIL) 10 MG Tablet 12/07/2021 3 furosemide (LASIX) 20 MG Tablet Take one daily for 3-5 days and then as needed after 30 Tablet 07/05/2022 3 indomethacin (INDOCIN) 25 MG Capsule One tablet twice a day for 5 days then as needed thereafter 30 Capsule 07/05/2022 3 methylPREDNISolo ne (MEDROL DOSPACK) 4 MG Tablet Therapy Pack Follow instructions on pack, take with food; Give one pack 1 Tablet 06/26/2022 3 documented as of this encounter Plan of Treatment Not on file documented as of this encounter Procedures Procedure Name Priority Date/Time Associated Diagnosis Comments US ANKLE/BRACHIAL INDICES Routine 07/19/2022 11:17 AM CDT Left leg swelling documented in this encounter Results * US ANKLE/BRACHIAL INDICES [...] PM T: ??07/19/2022 12:59 PM Report ID: [id number] Reading Location: ??[id number] Procedure Note Janes Peacock MD - 07/19/2022 [...] Janes Peacock M.D. RB: NATI Report ID: [id number] Reading Location: [place] [address] IMPRESSION: No evidence of large vessel arterial insufficiency at rest bilateral lower extremities. Evidence of small-vessel disease on the right Tracy Soto PAC [facility] [place] ORDERABLES Final Result documented in this encounter Visit Diagnoses Diagnosis Left leg swelling documented in this encounter Care Teams Paper Twister Tender Relationship Specialty Start Date End Date Tracy Soto, PAC [address] [place] [address] PCP - General Physician Lime Hide Inspector 12/21/21 documented as of this encounter
--- OUTSIDE RECORDS SUMMARY | 2024-02-19 03:34 | XMS_ITS | Encounter Summary ---
Author Organization [employer] Care Team Providers Care Shellacker Name Role Phone Tracy Soto PAC Primary Care Pro vider Encounter Details Date Type Department Care Team (Latest Contact Info) Description 07/06/2023 Travel Social History Tobacco Use Types Packs/Day Years Used Date Smoking Tobacco: Some Days Smokeless Tobacco: Never Alcohol Use Standard Drinks/Week Comments Yes 0 (1 standard drink = 0.6 oz pur e alcohol) [facility] Utilities Answer Date Recorded In the past 12 months has [employer], gas, oil, or water [employer] threatened to shut off services in your [...] How often do you attend chur or synagogue services? Patient declined 02/21/2023 Do you belong to any clubs o r organizations such as quaker groups, unions, fraternal or athletic groups, or [...] Total Score - Questions 1-9 0 [facility] Questionnaire Answer Date [...] place to sleep or slept in a care home (including now)? No 02/21/2023 Education Answer [...] Diagnoses Not on filedocumented in this encounter Additional Health Concerns Assessment Noted Time PHQ-9 Depression Total Score: 0 04/23/19 24 3:35 PM CDT documented as of this encounter Care Teams Shellacker Relationship Specialty Start Date End Date Tracy Soto PAC [address] [place] [address] PCP - General Physician High Wire Artist 12/21/21 documented as of this encounter
--- OUTSIDE RECORDS SUMMARY | 2024-02-19 03:34 | XMS_ITS | Encounter Summary ---
Author Organization [facility] Address [address] [place] [address] Phone Care Team Providers Care Siderographer Name Role Phone Tracy Soto Primary Care Pro vider Reason for Referral * Radiology Services (Routine) - Closed Specialty Diagnoses / Procedures Referred By Preeti tatum Referred To Contact Radiology Diagnoses Left shoulder pain, unspecified chronicity Procedures XR SHOULDER COMPLETE LEFT Tracy Soto, PAC [address] [place] [address] Phone: tel: fax: Referral ID Status Reason Start Date Expiration Date Visits Re quested Visits Authorized [id number] Closed 07/06/2023 1 1 Reason for Visit * Radiology Services (Routine) - Closed Specialty Diagnoses / Procedures Referred By Preeti tatum Referred To Contact Radiology Diagnoses Left shoulder pain, unspecified chronicity Procedures XR SHOULDER COMPLETE LEFT Tracy Soto, PAC [address] [place] [address] Phone: tel: fax: Referral ID Status Reason Start Date Expiration Date Visits Re quested Visits Authorized [id number] Closed 07/06/2023 1 1 Encounter Details Date Type Department Care Team (Latest Contact Info) Description 07/07/2023 11:42 AM CDT - 07/07/2023 11:59 PM CDT Hospital Encounter [facility] Diagnostic Radiology [address] [place] [address] Tracy Soto, PAC [address] [place] [address] Discharge Disposition: Discharged to home or Selfcare Social History Tobacco Use Types Packs/Day Years Used Date Smoking Tobacco: Some Days Smokeless Tobacco: Never Alcohol Use Standard Drinks/Week Comments Yes 0 (1 standard drink = 0.6 oz pur e alcohol) [facility] Utilities Answer Date Recorded In the [...] you attend [facility] or latter-day services? Patient declined 02/21/2023 Do you belong to any clubs o r organizations such as tenriism groups, unions, fraternal or athletic groups, or [...] Total Score - Questions 1-9 0 04/12 [place] [facility] Occupat ional Health - Occupational Stress [...] place to sleep or slept in a correction (including now)? No 02/21/2023 Education Answer Date [...] on file documented as of this encounter Medications at Time of Discharge hydroCHLOROthiaz anderson 25 MG Tablet Take 1 Tablet by mouth daily. 90 Tablet 3 05/28/2023 lisinopril (PRINIVIL, ZESTRIL) 40 MG Tablet Take 1 Tablet by mouth daily. 90 Tablet 3 02/21/2023 methylPREDNISolo ne (MEDROL DOSPACK) 4 MG Tablet Therapy Pack Follow instructions on pack, take with food; Give one pack 1 Tablet 07/06/2023 omeprazole (PriLOSEC) 20 MG CAPSULE DELAYED RELEASE Take 1 Capsule by mouth daily. 90 Capsule 3 05/28/2023 varenicline (CHANTIX) 1 MG Tablet Take 1 Tablet by mouth 2 times daily. 60 Tablet 1 01/22/2023 documented as of this encounter Plan of Treatment Not on file documented as of this encounter Procedures Procedure Name Priority Date/Time Associated Diagnosis Comments XR SHOULDER COMPLETE LEFT Routine 07/07/2023 11:57 AM CDT Left shoulder pain, unspecified chronicity documented in this encounter Results * XR SHOULDER COMPLETE LEFT (07/07/2023 11:57 AM CDT) Anatomical Region Laterality Modality UPPER EXTREMITY, shoulder Left Digita l Radiography 07/08/2023 12:2 0 PM CDT Impressions 07/08/2023 12:23 PM CDT IMPRESSION: Ifye-ec-krhgxjge C6-C7 degenerative disc disease with left-sided foraminal [...] no prevertebral soft tissue swelling. ??There is kdry-cl-rbczonvr C6-C7 degenerative disc disease. ?? There is left-sided C6-C7 foraminal impingement. Left shoulder: No acute fractures are identified. ??Alignment is normal. ??The joint spaces are normal. THIS IS AN ELECTRONICALLY VERIFIED FINAL REPORT 07/08/2023 12:20 PM - Electronically signed by ??Chacorta Maldonado M.D. MF: [id number] D: ??07/08/2023 12:20 PM T: ??07/08/2023 12:20 PM Report ID: [id number] Reading Location: ??[id number] Procedure Note Chacorta Maldonado MD - 07/08/2023 [...] no prevertebral soft tissue swelling. There is fnes-ma-ejitaomr C6-C7 degenerative disc disease. There is left-sided C6-C7 foraminal impingement. Left shoulder: No acute fractures are identified. Alignment is normal. The joint spaces are normal. THIS IS AN ELECTRONICALLY VERIFIED FINAL REPORT 07/08/2023 12:20 PM - Electronically signed by Chacorta MALCOLM: YUN Report ID: [id number] Reading Location: [id number] IMPRESSION: Fpud-ba-acwhvgdp C6-C7 degenerative disc disease with left-sided foraminal impingement. Normal left shoulder evaluation. Tracy SANCHEZ IMG DIAGNOSTIC OR DERABLES Final Result documented in this encounter Visit Diagnoses Diagnosis Left shoulder pain, unspecified chronicity documented in this encounter Additional Health Concerns Assessment Noted Time PHQ-9 Depression Total Score: 0 04/23/19 24 3:35 PM CDT documented as of this encounter Care Teams Siderographer Relationship Specialty Start Date End Date Tracy Soto, LAURA [address] [place] [address] PCP - General Physician Materials Branch Chief 12/21/21 documented as of this encounter
--- OUTSIDE RECORDS SUMMARY | 2024-02-19 03:34 | XMS_ITS | Encounter Summary ---
Author Organization [facility] Address [address] [facility] [place] [address] Phone Care Team Providers Care Retail Marketing Manager Name Role Phone Tracy Soto PAC Primary Care Pro vider Reason for Referral * Radiology Services (Routine) - Closed Specialty Diagnoses / Procedures Referred By Contac t Referred To Contact Radiology Diagnoses Neck pain Procedures XR CERVICAL SPINE MINIMUM 4 VIEWS (4 OR 5V) Tracy Soto, LAURA [address] [place] [address] Phone: tel: fax: Referral ID Status Reason Start Date Expiration Date Visits Re quested Visits Authorized [id number] Closed 07/06/2023 1 1 Reason for Visit * Radiology Services (Routine) - Closed Specialty Diagnoses / Procedures Referred By Contac t Referred To Contact Radiology Diagnoses Neck pain Procedures XR CERVICAL SPINE MINIMUM 4 VIEWS (4 OR 5V) Tracy Soto PAC [address] [place] [address] Phone: tel: fax: Referral ID Status Reason Start Date Expiration Date Visits Re quested Visits Authorized [id number] Closed 07/06/2023 1 1 Encounter Details Date Type Department Care Team (Latest Contact Info) Description 07/07/2023 11:42 AM CDT - 07/07/2023 11:59 PM CDT [facility] [address] [facility] [place] [address] Tracy Soto, PAC [address] [address] Discharge Disposition: Discharged to home or Selfcare Social History Tobacco Use Types Packs/Day Years Used Date Smoking Tobacco: Some Days Smokeless Tobacco: Never Alcohol Use Standard Drinks/Week Comments Yes 0 (1 standard drink = 0.6 oz pur e alcohol) [facility] Utilities Answer Date Recorded In [...] week 02/21/2023 How often do you attend [facility] or orthodoxy services? Patient declined 02/21/2023 Do you belong to any clubs o r organizations such as hoahaoism groups, unions, fraternal or athletic groups, or [...] Total Score - Questions 1-9 0 04/12 [place] [facility] Occupat ional Health - Occupational Stress [...] place to sleep or slept in a chcf (including now)? No 02/21/2023 Education Answer Date [...] Name Priority Date/Time Associated Diagnosis Comments XR CERVICAL SPINE MINIMUM 4 VIEWS (4 OR 5V) Routine 07/07/2023 11:52 AM CDT Neck pain documented in this encounter Results * XR CERVICAL SPINE MINIMUM 4 VIEWS (4 OR 5V) (07/07/2023 11:52 AM CDT) Anatomical Region Laterality Modality Spine, C-spine N/A Digital Radiogra phy 07/08/2023 12:2 0 PM CDT Impressions 07/08/2023 12:23 PM CDT IMPRESSION: Qkyd-lp-gswpreay C6-C7 degenerative disc disease with left-sided foraminal [...] no prevertebral soft tissue swelling. ??There is sjzi-am-juooedra C6-C7 degenerative disc disease. ?? There is left-sided C6-C7 foraminal impingement. Left shoulder: No acute fractures are identified. ??Alignment is normal. ??The joint spaces are normal. THIS IS AN ELECTRONICALLY VERIFIED FINAL REPORT 07/08/2023 12:20 PM - Electronically signed by ??Chacorta MALCOLM: YUN D: ??07/08/2023 12:20 PM T: ??07/08/2023 12:20 PM Report ID: [id number] Reading Location: ??[id number] Procedure Note Chacorta Maldonado MD - 07/08/2023 [...] no prevertebral soft tissue swelling. There is zqed-ln-oimybdkh C6-C7 degenerative disc disease. There is left-sided C6-C7 foraminal impingement. Left shoulder: No acute fractures are identified. Alignment is normal. The joint spaces are normal. THIS IS AN ELECTRONICALLY VERIFIED FINAL REPORT 07/08/2023 12:20 PM - Electronically signed by Chacorta Maldonado M.D. MF: [id number] Report ID: [id number] Reading Location: [id number] IMPRESSION: Wrpo-jo-ccjelbxv C6-C7 degenerative disc disease with left-sided foraminal impingement. Normal left shoulder evaluation. Tracy Soto [facility] IMG DIAGNOSTIC OR DERABLES Final Result documented in this encounter Visit Diagnoses Diagnosis Neck pain Cervicalgia documented in this encounter Additional Health Concerns Assessment Noted Time PHQ-9 Depression Total Score: 0 04/23/19 24 3:35 PM CDT documented as of this encounter Care Teams Retail Marketing Manager Relationship Specialty Start Date End Date Tracy Soto, [facility] [address] [place] [address] PCP - General Physician Sugar Presser 12/21/21 documented as of this encounter
--- OUTSIDE RECORDS SUMMARY | 2024-02-19 03:34 | XMS_ITS | Encounter Summary ---
Author Organization [employer] Care Team Providers Care Attendant Lodging Facilities Name Role Phone Tracy Soto PAC Primary Care Pro vider Encounter Details Date Type Department Care Team (Latest Contact Info) Description 04/23/2023 Travel Social History Tobacco Use Types Packs/Day Years Used Date Smoking Tobacco: Some Days Smokeless Tobacco: Never Alcohol Use Standard Drinks/Week Comments Yes 0 (1 standard drink = 0.6 oz pur e alcohol) [facility] Utilities Answer Date Recorded In the past 12 months has [employer], gas, oil, or water [facility] threatened to shut off services in your [...] How often do you attend chur or protestant services? Patient declined 02/21/2023 Do you belong to any clubs o r organizations such as jain groups, unions, fraternal or athletic groups, or [...] Total Score - Questions 1-9 0 04/12 [facility] - Occupational Stress Questionnaire Answer Date Recorded [...] place to sleep or slept in a long-term (including now)? No 02/21/2023 Education Answer Date [...] Not at all 04/23/2023 3:35 PM CDT May Feeling down, depressed, or hopeless Not at all 04/12 3:35 PM CDT May * Over the past 2 weeks, how often have you been bothered by any of the following problems? Question Answer Date of Assessment Author Patient Health Questionnaire-2 Score 0 04/12 3:35 PM CDT May documented as of this encounter Plan of Treatment Not on file documented as of this encounter Visit Diagnoses Not on filedocumented in this encounter Additional Health Concerns Assessment Noted Time PHQ-9 Depression Total Score: 0 04/23/19 24 3:35 PM CDT documented as of this encounter Care Teams Attendant Lodging Facilities Relationship Specialty Start Date End Date Tracy Soto PAC [address] [place] [address] PCP - General Physician Software Development Test Engineer 12/21/21 documented as of this encounter
--- OUTSIDE RECORDS SUMMARY | 2024-02-19 03:34 | XMS_ITS | Encounter Summary ---
Author Organization [employer] Care Team Providers Care Pr Intern Name Role Phone Tracy Soto PAC Primary Care Pro vider Encounter Details Date Type Department Care Team (Latest Contact Info) Description 05/28/2023 Travel Social History Tobacco Use Types Packs/Day Years Used Date Smoking Tobacco: Some Days Smokeless Tobacco: Never Alcohol Use Standard Drinks/Week Comments Yes 0 (1 standard drink = 0.6 oz pur e alcohol) [facility] Utilities Answer Date Recorded In the past 12 months has [employer], gas, oil, or water [employer] threatened to shut off services in your [...] How often do you attend chur or pentecostalism services? Patient declined 02/21/2023 Do you belong to any clubs o r organizations such as moravian groups, unions, fraternal or athletic groups, or [...] Total Score - Questions 1-9 0 04/12 [facility] - Occupational Stress Questionnaire Answer Date [...] documented as of this encounter Care Teams Pr Intern Relationship Specialty Start Date End Date Tracy Soto PAC [address] [place] [address] PCP - General Physician R Developer 12/21/21 documented as of this encounter
--- OUTSIDE RECORDS SUMMARY | 2024-02-19 03:34 | XMS_ITS | Encounter Summary ---
Author Organization [facility] Address [address] [place] [address] Phone Care Team Providers Care Registration Rep Name Role Phone Tracy Soto [facility] Primary Care Pro vider Reason for Visit * Reason Onset Date Comments Referral 07/24/2022 Encounter Details Date Type Department Care Team (Late st Contact Info) Description 07/24/2022 Telephone [facility] Medicine - [place] [address] [id number] Tracy Soto, LAURA [address] [place] [address] Referral Social History Tobacco Use Types Packs/Day Years [...] PM CDT documented as of this encounter Miscellaneous Notes * Telephone Encounter - Adri Herman RN - 07/25/2022 2:09 PM CDT Podiatry referral placed * Telephone Encounter - Radha Stone - 07/24/2022 12:26 PM CDT Referral request Geoffrey is requesting a referral to a cardiology clinical nurse specialist for his left foot. Phone - [phone] documented in this encounter Plan of Treatment Not on file documented as of this encounter Visit Diagnoses Not on filedocumented in this encounter Care Teams Registration Rep Relationship Specialty Start Date End Date Tracy Soto PAC [address] [place] [address] PCP - General Physician Window Glazier Helper 12/21/21 documented as of this encounter
--- OUTSIDE RECORDS SUMMARY | 2024-02-19 03:34 | XMS_ITS | Encounter Summary ---
Author Organization [employer] Care Team Providers Care Resident Care Associate Name Role Phone Tracy Soto PAC Primary Care Pro vider Encounter Details Date Type Department Care Team (Latest Contact Info) Description 08/20/2023 Travel Social History Tobacco Use Types Packs/Day Years Used Date Smoking Tobacco: Some Days Smokeless Tobacco: Never Alcohol Use Standard Drinks/Week Comments Yes 0 (1 standard drink = 0.6 oz pur e alcohol) [facility] Utilities Answer Date Recorded In the past 12 months has [employer], gas, oil, or water [employer] threatened to shut off services in your [...] How often do you attend chur or jehovah's witness services? Patient declined 02/21/2023 Do you belong to any clubs o r organizations such as anabaptism groups, unions, fraternal or athletic groups, or [...] Total Score - Questions 1-9 0 04/12 [facility] - Occupational Stress Questionnaire Answer [...] place to sleep or slept in a usp (including now)? No 02/21/2023 Education Answer Date [...] documented as of this encounter Care Teams Resident Care Associate Relationship Specialty Start Date End Date Tracy Soto PAC [address] [place] [address] PCP - General Physician Net Coordinator 12/21/21 documented as of this encounter
--- OUTSIDE RECORDS SUMMARY | 2024-02-19 03:34 | XMS_ITS | Encounter Summary ---
Author Organization [employer] Care Team Providers Care Infection Prevention Practitioner Name Role Phone Tracy Soto PAC Primary Care Pro vider Encounter Details Date Type Department Care Team (Latest Contact Info) Description 07/19/2022 Travel Social History Tobacco Use Types Packs/Day [...] AM CDT documented as of this encounter Plan of Treatment Not on file documented as of this encounter Visit Diagnoses Not on filedocumented in this encounter Care Teams Infection Prevention Practitioner Relationship Specialty Start Date End Date Tracy Soto PAC [address] [place] [address] PCP - General Physician Pilot 12/21/21 documented as of this encounter
--- OUTSIDE RECORDS SUMMARY | 2024-02-19 03:34 | XMS_ITS | Encounter Summary ---
Author Organization [facility] Address [address] [place] [address] Phone Care Team Providers Care Healthcare Architect Name Role Phone Tracy Soto Primary Care Pro vider Reason for Referral * Consult, Test & Initiate Treatment (Routine) - Closed Specialty Diagnoses / Procedures Referred By Preeti tatum Referred To Contact Diagnoses Left leg swelling Tracy Soto PAC [address] [place] [address] Phone: tel: fax: Provider, Not On File [place] Referral ID Status Reason Start Date Expiration Date Visits Re quested Visits Authorized [id number] Closed 07/21/2022 1 1 Scheduling Instructions Geoffrey is being referred to vascular specialist or other specialist in patient's insurance network for leg swelling/ evaluation. See below for Geoffrey's current medications, allergies and problem list. CURRENT MEDS: Current Outpatient Medications: cyclobenzaprine (FLEXERIL) 10 MG Tablet, , Disp: , Rfl: furosemide (LASIX) 20 MG Tablet, Take one daily for 3-5 days and then as needed after, Disp: 30 Tablet, Rfl: 0 indomethacin (INDOCIN) 25 MG Capsule, One tablet twice a day for 5 days then as needed thereafter, Disp: 30 Capsule, Rfl: 0 methylPREDNISolone (MEDROL DOSPACK) 4 MG Tablet Therapy Pack, Follow instructions on pack, take with food; Give one pack, Disp: 1 Tablet, Rfl: 0 metoprolol tartrate (LOPRESSOR) 50 MG Tablet, Take 1 Tablet by mouth 2 times daily., Disp: 60 Tablet, Rfl: 1 No current facility-administered medications for this visit. ALLERGIES: No Known Allergies PROBLEM LIST: Patient Active Problem List: White coat syndrome with hypertension Left foot pain Reason for Visit * Reason Onset Date Comments Medication Management 07/19/2022 Encounter Details Date Type Department Care Team (Late st Contact Info) Description 07/19/2022 Telephone [facility] - Internal Medicine - [place] [address] [place] [address] Tracy Soto PAC [address] [place] [address] Medication Management Social History Tobacco Use Types Packs/Day Years [...] Telephone Encounter - Adri Herman RN - 07/21/2022 3:16 PM CDT Provider d/w pt today at [facility] * Telephone Encounter - Tracy Soto PAC - 07/19/2022 4:26 PM CDT Will await arterial u/s results Will refer to vascular for leg evaluation Pt has had pain meds, NSAIDS, muscle relaxers and steroids No further medication recommendations at this time Needs to see vascular; please refer * Telephone Encounter - Adri Herman, RN - 07/19/2022 10:52 AM CDT Pt was calling in to see if there is anything that you could Rx for the pain in his leg. Swelling is the same and pt states he has been in quite a bit of pain. OTC medication has not been helping. Pt has follow up with you 07/21/22 Pt is at [facility] now for US ANKLE/BRACHIAL INDICES documented in this encounter Plan of Treatment Scheduled Referrals Name Type Priority Associated Diagnoses Orde r Schedule EXTERNAL VASCULAR SURGERY REFERRAL Outpatient Referral Routine Left leg swelling Expected: 07/21/2022, Expires: 07/22/2023 documented as of this encounter Visit Diagnoses Diagnosis Left leg swelling- Primary documented in this encounter Care Teams Healthcare Architect Relationship Specialty Start Date End Date Tracy Soto PAC [address] [place] [address] PCP - General Physician Management Rep 12/21/21 documented as of this encounter
--- OUTSIDE RECORDS SUMMARY | 2024-02-19 03:34 | XMS_ITS | Encounter Summary ---
Author Organization [facility] Address [address] [facility] [place] [address] Phone Care Team Providers Care Digital Sales Planner Name Role Phone Tracy Soto PAC Primary Care Pro vider Reason for Referral * Radiology Services (STAT with Interpretation) - Closed Specialty Diagnoses / Procedures Referred By Harpalac t Referred To Contact Radiology Diagnoses Leg swelling Pain of left calf Procedures US LEFT DUPLEX LOWER EXTREMITY VEINS Tracy Soto, PAC [address] [place] [address] Phone: tel: fax: Referral ID Status Reason Start Date Expiration Date Visits Re quested Visits Authorized [id number] Closed 06/26/2022 1 1 Reason for Visit * Radiology Services (STAT with Interpretation) - Closed Specialty Diagnoses / Procedures Referred By Contac t Referred To Contact Radiology Diagnoses Leg swelling Pain of left calf Procedures US LEFT DUPLEX LOWER EXTREMITY VEINS Tracy Soto, PAC [address] [place] [address] Phone: tel: fax: Referral ID Status Reason Start Date Expiration Date Visits Re quested Visits Authorized [id number] Closed 06/26/2022 1 1 Encounter Details Date Type Department Care Team (Latest Contact Info) Description 06/26/2022 12:15 PM CDT - 06/26/2022 11:59 PM CDT Hospital Encounter [facility] Ultrasound [address] [place] [address] Tracy Soto, PAC [address] [place] [address] Discharge Disposition: Discharged to home or Selfcare [...] things Not at all 06/26/2022 11:00 AM Macy Rodarte RMA Feeling down, depressed, or hopeless Not at all 06/26/2022 11:00 AM CDT Macy Parada RMA * Over the past 2 weeks, how often have you been bothered by any of the following problems? Question Answer Date of Assessment Author Patient Health Questionnaire -2 Score 0 06/26/2022 11:00 AM CDMacy Duncan RMA documented as of this encounter Medications at Time of Discharge cyclobenzaprine (FLEXERIL) 10 MG Tablet 12/07/2021 3 methylPREDNISolo ne (MEDROL DOSPACK) 4 MG Tablet Therapy Pack Follow instructions on pack, take with food; Give one pack 1 Tablet 06/26/2022 3 naproxen (NAPROSYN) 500 MG Tablet Take 500 mg by mouth 2 times daily (with meals). 12/07/2021 documented as of this encounter Plan of Treatment Not on file documented as of this encounter Procedures Procedure Name Priority Date/Time Associated Diagnosis Comments US LEFT DUPLEX LOWER EXTREMITY VEINS Stat with Interpretation 06/26/2022 1:30 PM CDT Leg swelling Pain of left calf documented in this encounter Results * US LEFT DUPLEX LOWER EXTREMITY VEINS (06/26/2022 1:30 PM CDT) Anatomical Region Laterality Modality vascular Left Ultrasound 06/26/2022 3:01 PM CDT Impressions 06/26/2022 3:04 PM CDT IMPRESSION: No sonographic evidence of left lower extremity deep venous thrombosis. Narrative 06/26/2022 3:04 PM CDT EXAM DESCRIPTION: ?? US LEFT DUPLEX LOWER EXTREMITY VEINS REASON FOR STUDY: ?? left leg swelling; left calf pain. ??Symptoms for 3 days. TECHNIQUE: Duplex scan using the B-mode, spectral Doppler, and color-flow Doppler of the deep venous system of the ??left ??lower extremity was performed. Images stored on PACS. COMPARISON: ?? None available FINDINGS: The common femoral, common femoral-saphenous vein confluence, visualized profunda femoral, superficial femoral, and popliteal veins are readily compressible with no intraluminal thrombus on robins scale images. ??There is normal color and spectral Doppler signal, including augmentation. ??Greater saphenous vein appears patent. Visualized calf veins are patent. ??Of note, assessment of the peroneal vein is mildly limited by calf edema. THIS IS AN ELECTRONICALLY VERIFIED FINAL REPORT 06/26/2022 3:01 PM - Electronically signed by ??Timbo Burrows M.D. BC: CEDRICK D: ??06/26/2022 3:01 PM T: ??06/26/2022 3:01 PM Report ID: [id number] Reading Location: ??[id number] Procedure Note Timbo Burrows MD - 06/26/2022 EXAM DESCRIPTION: US LEFT DUPLEX LOWER EXTREMITY VEINS REASON FOR STUDY: left leg swelling; left calf pain. Symptoms for 3 days. TECHNIQUE: Duplex scan using the B-mode, spectral Doppler, and color-flow Doppler of the deep venous system of the left lower extremity was performed. Images stored on PACS. COMPARISON: None available FINDINGS: The common femoral, common femoral-saphenous vein confluence, visualized profunda femoral, superficial femoral, and popliteal veins are readily compressible with no intraluminal thrombus on robins scale images. There is normal color and spectral Doppler signal, including augmentation. Greater saphenous vein appears patent. Visualized calf veins are patent. Of note, assessment of the peroneal vein is mildly limited by calf edema. THIS IS AN ELECTRONICALLY VERIFIED FINAL REPORT 06/26/2022 3:01 PM - Electronically signed by Timbo Burrows M.D. BC: CEDRICK Report ID: [id number] Reading Location: [place] [address] IMPRESSION: No sonographic evidence of left lower extremity deep venous thrombosis. us Tracy Soto PAC IMG US ORDERABLES Final Result documented in this encounter Visit Diagnoses Diagnosis Leg swelling Swelling of limb Pain of left calf documented in this encounter Care Teams Digital Sales Planner Relationship Specialty Start Date End Date Tracy Soto, PAC [address] [place] [address] PCP - General Physician Shower Attendant 12/21/21 documented as of this encounter
--- OUTSIDE RECORDS SUMMARY | 2024-02-19 03:35 | XMS_ITS | Encounter Summary ---
Author Organization [facility] Healthcare Address [address] [place] [address] Care Team Providers Care Jumpbasting Machine Operator Name Role Phone Unavailable Primary Care Provider Unavailabl e Encounter Details Date Type Department Care Team (Latest Contact Info) Description 05/03/2013 12:18 AM CDT - 05/03/2013 2:08 AM CDT Hospital Encounter [facility] Disorder of teeth and supporting structures; Dental caries Social History Tobacco Use Types Packs/Day Years Used Date Smoking Tobacco: Never Assessed Sex and Gender Information Value Date Recorded Sex Assigned at Not on file Legal Sex Male 1:06 PM SLEEP MEDICINE PHYSICIAN Gender Identity Not on file Sexual Orientation Not on file documented as of this encounter Last Filed Vital Signs Vital Sign Reading Time Taken Comments Blood Pressure 146/80 05/03/2013 12:20 AM CDT Pulse 50 05/03/2013 12:20 AM CDT Temperature 36.8 ??C (98.3 ??F) 05/03/2013 12:20 AM C DT Respiratory Rate - - Oxygen Saturation 99% 05/03/2013 12:20 AM CDT Inhaled Oxygen Concentration - - Weight 72.6 kg (160 lb) 05/03/2013 12:20 AM CDT Height 170.2 cm (5' 7 ) 05/03/2013 12:20 AM CDT Body Mass Index 25.06 05/03/2013 12:20 AM CDT documented in this encounter Plan of Treatment Not on file documented as of this encounter Visit Diagnoses Diagnosis Disorder of teeth and supporting structures Unspecified disorder of the teeth and supporting structures Dental caries Unspecified dental caries documented in this encounter
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
--- OUTSIDE RECORDS SUMMARY | 2024-02-19 03:35 | XMS_ITS | Encounter Summary ---
Author Organization [facility] Healthcare Address [address] [place] [address] Care Team Providers Care Field Supervisor Name Role Phone Tracy Soto Primary Care Prov ider Encounter Details Date Type Department Care Team (Late st Contact Info) Description 09/11/2023 Telephone [facility] [address] [facility] 4th Floor [address] [place] [address] Katie Abreu, RN Social History Tobacco Use Types Packs/Day Years Used Date Smoking Tobacco: Every Day Cigarettes Smokeless Tobacco: Never AUDIT-C Answer Date Recorded Q1: How often do you have a drink containing alc ohol? 2-4 times a month 09/06/2022 Average Number of Drinks Not on file 023 Frequency of Binge Drinking Not on file 08/13 Hunger Vital Sign Answer Date Recorded Within the past 12 months, y ou worried that your food would run out before you got the money to buy more. Never true 09/07/19 23 Within the past 12 months, t he food you bought just didn't last and you didn't have money to get more. Never true 09/06/2022 Personal Safety Answer Date Recorded Have you ever been in or are you currently in a harmful physical or emotional relationship or is someone making you feel afraid or unsafe? 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 Please call us at your earliest convenience to discuss scheduling your appointment with our Orthopedic Physiatry Clinic. If you have insurance, please be prepared to provide us with your most recent, active insurance information. We will also need you to provide a working phone number, when you call. We can be contacted at [phone]. We look forward to hearing from you. Sincerely, [facility] Approved- new spine slot- CHAIM documented in this encounter Plan of Treatment Not on file documented as of this encounter Visit Diagnoses Not on filedocumented in this encounter Care Teams Field Supervisor Relationship Specialty Start Date End Date Tracy Soto PA PCP - General Neurosurgery 07/25/22 documented as of this encounter
--- OUTSIDE RECORDS SUMMARY | 2024-02-19 03:35 | XMS_ITS | Clinical Summary ---
Author Organization [facility] Address [address] [place] [address] Care Team Providers Care Clay [employer] Glazer Name Role Phone Tracy Soto Primary Care Prov ider Allergies No known active allergies Medications traMADoL (ULTRAM) 50 mg tablet Take 1 tablet (50 mg total) by mouth every 6 (six) hours as needed for pain 12 tablet 08/18/2022 Active cyclobenzaprine (FLEXERIL) 10 mg tablet Take 1 tablet (10 mg total) by mouth 2 (two) times a day as needed for muscle spasms 20 tablet 08/18/2022 Active naproxen (NAPROSYN) 500 mg tablet Take 1 tablet (500 mg total) by mouth 2 (two) times a day as needed for pain 20 tablet 08/18/2022 Active cyclobenzaprine (FLEXERIL) 10 mg tablet Take 1 tablet (10 mg total) by mouth 2 (two) times a day as needed for muscle spasms 20 tablet 08/24/2022 Active Active Problems No known active problems Immunizations Name Administration Dates Next Due Influenza, Quadrivalent, Spl it, Preservative Free, Intramuscular 11/26/2015 Social History Tobacco Use Types Packs/Day Years Used Date Smoking Tobacco: Every Day Cigarettes Smokeless Tobacco: Never Tobacco Cessation:Ready to Q uit: Yes; Counseling Given: Yes AUDIT-C Answer Date Recorded Q1: How often [...] on file 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 Gender Identity Not on file Sexual Orientation Not on file Obstetrics History Last Filed Vital Signs Vital Sign Reading Time Taken Comments Blood Pressure 97/82 09/06/2022 9:06 AM CDT Pulse 86 09/06/2022 9:06 AM CDT Temperature 36.7 ??C (98.1 ??F) 09/06/2022 9:06 AM CD T Respiratory Rate 16 09/06/2022 9:06 AM CDT Oxygen Saturation 96% 08/24/2022 2:49 PM CDT Inhaled Oxygen Concentration - - Weight 79.2 kg (174 lb 8 oz) 09/06/2022 9:06 AM CDT Height 170.2 cm (5' 7 ) 09/06/2022 9:06 AM CDT Body Mass Index 27.33 09/06/2022 9:06 AM CDT Plan of Treatment Health Maintenance Due Date Last Done Comments Colon Cancer Screening-Colonoscopy 1975 Depression Screening 1975 Hepatitis C Screening 1975 Prostate Cancer Screening-PSA 1975 Pneumococcal vaccine <65 (1 of 2 - PCV) 1981 DTaP/Tdap/Td Vaccine (1 - Tdap) 1986 Hepatitis B Screening 1993 Regular Well Visit/Exam 18-64 1993 Covid-19 Vaccine (4 - season) 2023 08/18/2021, 09/30/2020, 09/07/2020 Influenza Vaccine (#1) 2023 11/26/2015 Insurance [employer] [facility] AETNA [facility] M[facility] [employer]NA [facility] [facility] Care Teams Clay Products Glazer Relationship Specialty Start Date End Date Tracy Soto PA PCP - General Neurosurgery 07/25/22
--- OUTSIDE RECORDS SUMMARY | 2024-02-19 03:35 | XMS_ITS | Encounter Summary ---
Author Organization [facility] Facility Care Team Providers Care Department Store General Manager Name Role Phone Unavailable Primary Care Provider Unavailabl e Encounter Details Date Type Department Care Team (Late st Contact Info) Description 03/21/2010 9:45 AM BOARD MEMBER - 03/21/2010 4:32 PM BOARD MEMBER Hospital Encounter [facility] Giovanni Linares MD [address] [facility] [address] [place] [address] Head injury; Acute sinusitis; Striking against or struck accidentally by other stationary object without subsequent fall; Other activity Social History Tobacco Use Types Packs/Day Years Used Date Smoking Tobacco: Never Assessed Sex and Gender Information Value Date Recorded Sex Assigned at Not on file Legal Sex Male 

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
--- OUTSIDE RECORDS SUMMARY | 2024-02-19 03:35 | XMS_ITS | Encounter Summary ---
Author Organization [facility] Healthcare Address [address] [place] [address] Care Team Providers Care Rip Tailer Name Role Phone No, Physician Primary Care Provider [phone] Reason for Visit * Reason Comments Med Refill Encounter Details Date Type Department Care Team (Late st Contact Info) Description 07/19/2022 7:36 PM CDT - 07/19/2022 7:40 PM CDT Emergency 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 Gender Identity Not on file Sexual Orientation Not on file documented as of this encounter Last Filed Vital Signs Vital Sign Reading Time Taken Comments Blood Pressure 191/82 07/19/2022 7:15 PM CDT Pulse 68 07/19/2022 7:15 PM CDT Temperature 36.5 ??C (97.7 ??F) 07/19/2022 7:15 PM CD T Respiratory Rate 22 07/19/2022 7:15 PM CDT Oxygen Saturation 99% 07/19/2022 7:15 PM CDT Inhaled Oxygen Concentration - - Weight 70.3 kg (154 lb 15.7 oz) 07/19/2022 7:15 PM CDT Height - - Body Mass Index 24.27 06/25/2022 9:56 AM CDT documented in this encounter Medications at Time of Discharge cyclobenzaprine (FLEXERIL) 10 mg tablet Take 1 tablet (10 mg total) by mouth 2 (two) times a day as needed for muscle spasms 15 tablet 12/07/2021 08/18/2022 naproxen (NAPROSYN) 500 mg tablet Take 1 tablet (500 mg total) by mouth 2 (two) times a day with meals 20 tablet 12/07/2021 08/18/2022 documented as of this encounter Discharge Disposition Disposition Code Departure Means Destination Comment s Left without being seen documented in this encounter ED Notes * Laura Acosta RN - 07/19/2022 7:13 PM CDT Patient arrives with requests for pain medication. Patient is being seen by PCP for left leg pain and swelling for several months. Had ultra sound of leg this morning at [facility] in [place]. Patient states the PCP was suppose to call in pain medication but still has nothing at the pharmacy for him. States he is trying ibuprofen and tylenol with no success. Has follow up apt Sunday with PCP forresults of US. Patient verbalizes frustration of nobody taking his pain seriously and states he needs something for the pain that will work. documented in this encounter Plan of Treatment Not on file documented as of this encounter Visit Diagnoses Not on filedocumented in this encounter Care Teams Rip Tailer Relationship Specialty Start Date End Date No, Physician PCP - General 12/07/21 07/24/22 documented as of this encounter
--- OUTSIDE RECORDS SUMMARY | 2024-02-19 03:35 | XMS_ITS | Encounter Summary ---
Author Organization [facility] Healthcare Address [address] [place] [address] Care Team Providers Care Chief Dog License Inspector Name Role Phone No, Physician Primary Care Provider [phone] Reason for Visit * Reason Comments Foot Pain Encounter Details Date Type Department Care Team (Late st Contact Info) Description 06/25/2022 11:42 AM CDT - 06/25/2022 12:03 PM CDT Emergency [address] [address] Swelling of left foot (Primary Dx); Elevated blood pressure reading Discharge Disposition: Discharge to home or self care Social History Tobacco Use Types Packs/Day Years Used Date Smoking Tobacco: Never Assessed Sex and Gender Information Value Date Recorded Sex Assigned at Not on file 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 Gender Identity Not on file Sexual Orientation Not on file documented as of this encounter Last Filed Vital Signs Vital Sign Reading Time Taken Comments Blood Pressure 160/76 06/25/2022 9:56 AM CDT Pulse 72 06/25/2022 9:56 AM CDT Temperature 36.6 ??C (97.9 ??F) 06/25/2022 9:56 AM CD T Respiratory Rate 20 06/25/2022 9:56 AM CDT Oxygen Saturation 100% 06/25/2022 9:56 AM CDT Inhaled Oxygen Concentration - - Weight 70.3 kg (155 lb) 06/25/2022 9:56 AM CDT Height 170.2 cm (5' 7 ) 06/25/2022 9:56 AM CDT Body Mass Index 24.28 06/25/2022 9:56 AM CDT documented in this encounter Discharge Instructions * Discharge Instructions* Amanda Rosen PA - 06/25/2022 11:52 AM CDT Your blood work did not show evidence of infection, gout, or blood clot. Your xray did not show fracture. Please continue over the counter analgesics such as motrin and tylenol, erika wrap, ice, elevation of the foot. Follow-up with your primary care provider this week for persistent issues. Additionally, your blood pressure was elevated 160/76 in the ED. Please follow- up with your primarycare provider for continued monitoring. * Attachments The following attachments cannot be sent through Care Everywhere. * P.R.I.C.E. Treatment (AfterCare(R) Instructions(ER/ED)) (Wallisian) documented in this encounter Medications at Time [...] documented in this encounter ED Notes * Amanda Rosen PA - 06/25/2022 10:10 AM CDT CHIEF COMPLAINT: Chief Complaint Patient presents with Foot Pain HPI 11:51 AM Geoffrey Walker is a 47 y.o. male presenting to the ED c/o left foot pain x2 days. Last night became more swollen. Denies recent injury/trauma. Took Ibuprofen for pain 2 days ago and has beenicing and elevating the foot without improvement. States that today pain and swelling is now going up his leg. No Hx of similar previous episodes. No Hx of gout or blood clots. History provided by patient PCP: No, Physician PAST MEDICAL HISTORY No past medical history on file. PAST SURGICAL HISTORY No past surgical history on file. FAMILY HISTORY No family history on file. MEDICATIONS GIVEN IN THE ED Medications ibuprofen (ADVIL,MOTRIN) tablet/capsule 600 mg (600 mg oral Given 06/25/22 1131) CURRENT HOME MEDICATIONS No current facility-administered medications for this encounter. Current Outpatient Medications: cyclobenzaprine (FLEXERIL) 10 mg tablet, Take 1 tablet (10 mg total) by mouth 2 (two) times a day as needed for muscle spasms, Disp: 15 tablet, Rfl: 0 naproxen (NAPROSYN) 500 mg tablet, Take 1 tablet (500 mg total) by mouth 2 (two) times a day with meals, Disp: 20 tablet, Rfl: 0 ALLERGIES No Known Allergies SOCIAL HISTORY Social History Tobacco Use Smoking status: Not on file Smokeless tobacco: Not on file Substance and Sexual Activity Drug use: Not on file Sexual activity: Not on file Alcohol Use: Not on file PHYSICAL EXAM TRIAGE VITAL SIGNS: ED Triage Vitals [06/25/22 0956] Temp Pulse Resp BP SpO2 36.6 ??C (97.9 ??F) 72 20 160/76 100 % Temp src Heart Rate Source Patient Position BP Location FiO2 (%) -- Pulse Oximetry -- Right arm -- Height Height Method Weight Weight Method 1.702 m (5' 7 ) Stated 70.3 kg (155 lb) Stated Physical Exam Vitals and nursing note reviewed. HENT: Head: Normocephalic and atraumatic. Eyes: General: No scleral icterus. Cardiovascular: Rate and Rhythm: Normal rate. Comments: Strong palpable left DP pulse. Pulmonary: Effort: Pulmonary effort is normal. No tachypnea or accessory muscle usage. Musculoskeletal: Cervical back: Neck supple. Comments: Moderate generalized swelling to the left foot. No erythema or warmth. No ecchymosis. No open wounds or lesions. No calf swelling or tenderness. Skin: General: Skin is warm and dry. Neurological: Mental Status: He is alert and oriented to person, place, and time. Psychiatric: Mood and Affect: Mood normal. Behavior: Behavior normal. LABS Labs Reviewed DIFFERENTIAL AUTO - Abnormal Result Value Neutrophil abs 4.9 Imm gran abs 0.0 Lymphocyte abs 1.5 Monocyte abs 0.5 Eosinophil abs 0.7 (*) Basophil abs 0.0 Neutrophil pct 64.2 Imm gran pct 0.4 Lymphocyte pct 19.6 Monocyte pct 6.4 Eosinophil pct 8.9 Basophil pct 0.5 CBC WITH AUTO DIFFERENTIAL WBC 7.6 Hgb 14.5 Hct 44.4 Plt 265 MPV 9.3 RBC 4.76 MCV 93.3 MCH 30.5 MCHC 32.7 RDW CV 13.2 RDW SD 45.2 NRBC abs 0.00 COMPREHENSIVE METABOLIC PANEL Sodium 140 Potassium, pl 4.3 Chloride 105 CO2 28 Anion gap 7 BUN 11 Creatinine 1.00 Glucose 90 Calcium 9.9 Bilirubin, total <0.2 Protein, pl 7.0 Albumin 4.5 Alk phos 79 ALT 10 AST 12 URIC ACID Uric acid 4.7 D-DIMER, QUANTITATIVE D-Dimer <270 EGFR eGFR 93 RADIOLOGY No results found. ED COURSE/MEDICAL DECISION MAKING Differential diagnosis included but not limited to sprain vs infectious process/cellulitis vs gout vs DVT vs Patient's medical records were reviewed. CBC, CMP, uric acid, ddimer all unremarkable Xray - mild degenerative changes, otherwise negative for acute osseous abnormality Plan for discharge home with instructions for RICE and follow-up with PCP this week Procedures FINAL IMPRESSION Swelling of left foot Elevated blood pressure reading DISPOSITION: Home All findings were discussed with patient. Pt agreeable with plan. Non toxic appearing, vitals stable. Patient stable for discharge home. Given return to ER precautions Close outpatient follow-up with a low threshold to return has been mandated , concerning symptoms have been emphasized in detail, and this patient expresses understanding PATIENT INSTRUCTED TO FOLLOW UP No follow-up provider specified. DISCHARGE MEDICATIONS Your medication list ASK your doctor about these medications Instructions Last Dose Given Next Dose Due cyclobenzaprine 10 mg tablet Commonly known as: FLEXERIL 10 mg, oral, 2 times daily PRN naproxen 500 mg tablet Commonly known as: NAPROSYN 500 mg, oral, 2 times daily with meals (bkfst, dinner) This examination was transcribed using the SVXR voice recognition system without human mechanical assembly. In an effort to expedite patient care, this report has not been adjusted for typographical, grammatical, and syntax by a trained medical care manager. Amanda Rosen PA 06/25/22 1151 Cosigned by Karen Cody DO at 06/25/2022 12:06 PM CDT Associated attestation - Karen Cody DO - 06/25/2022 12:06 PM CDT The APC independently evaluated the patient and completed their own examination, documentation, anddisposition. I was available for immediate consultation and in-person evaluation if required but was not asked to do so. * Ariela Felipe RN - 06/25/2022 10:07 AM CDT Pt to ED with c/o left foot pain x 2 days and swelling since last night. Reports pins and needles that radiates up into his left calf. 3+left pedal pulse. Denies SOB,CP or known injuries. documented in this encounter Plan of Treatment Not on file documented as of this encounter Procedures Procedure Name Priority Date/Time Associated Diagnosis Comments XR FOOT LEFT 3 OR MORE VIEWS ED 06/25/2022 11:05 AM CDT EGFR STAT 06/25/2022 10:16 AM CDT DIFFERENTIAL AUTO STAT 06/25/2022 10: 16 AM CDT CBC WITH AUTO DIFFERENTIAL STAT 06/25/2022 10:16 AM CDT D-DIMER, QUANTITATIVE STAT 06/25/2022 10:16 AM CDT URIC ACID STAT 06/25/2022 10:16 AM CDT COMPREHENSIVE METABOLIC PANEL STAT 06/25/2022 10:16 AM CDT documented in this encounter Results * XR Foot Left 3 or More Views (06/25/2022 11:05 AM CDT) Anatomical Region Laterality Modality Lower Extremities, Foot Left Computed Radiography 06/25/2022 11:2 0 AM CDT Narrative 06/25/2022 11:22 AM CDT EXAM DESCRIPTION: ?? XR FOOT LEFT 3 OR MORE VIEWS REASON FOR STUDY: ?? generalized swelling. no known injury ?? presenting to the ED c/o left foot pain x2 days. Last night became more swollen. Denies recent injury/trauma. Took Ibuprofen for pain 2 days ago and has been icing and elevating the foot without improvement. States that today pain and swelling is now ?? going up his leg. No Hx of similar previous episodes. No Hx of gout or blood clots. ? TECHNIQUE: ??Three views COMPARISON: ??None available FINDINGS: No acute fracture or dislocation. ??No lytic or destructive process. Mild degenerative change 1st metatarsophalangeal joint with slight sclerosis and spur formation. Soft tissues are unremarkable. IMPRESSION: Mild degenerative changes left foot. THIS IS AN ELECTRONICALLY VERIFIED FINAL REPORT 06/25/2022 11:22 AM - Electronically signed by ??Janes DAMIAN D: ??06/25/2022 11:22 AM T: Report ID: [id number] Reading Location: ??[id number] Procedure Note Janes Peacock MD - 06/25/2022 EXAM DESCRIPTION: XR FOOT LEFT 3 OR MORE VIEWS REASON FOR STUDY: generalized swelling. no known injury presenting to the ED c/o left foot pain x2 days. Last night became more swollen. Denies recent injury/trauma. Took Ibuprofen for pain 2 days agoand has been icing and elevating the foot without improvement. States thattoday pain and swelling is now going up his leg. No Hx of similar previous episodes. No Hx of gout or blood clots. TECHNIQUE: Three views COMPARISON: None available FINDINGS: No acute fracture or dislocation. No lytic or destructive process. Mild degenerative change 1st metatarsophalangeal joint with slightsclerosis and spur formation. Soft tissues are unremarkable. IMPRESSION: Mild degenerative changes left foot. THIS IS AN ELECTRONICALLY VERIFIED FINAL REPORT 06/25/2022 11:22 AM - Electronically signed by Janes Peacock M.D. RB T: Report ID: [id number] Reading Location: [id number] us Amanda HOWELL IMG XR PROCEDURES Final Result * eGFR (06/25/2022 10:16 AM CDT) eGFR 93 mL/min/1. 73 m2 NIDHI ESPARZA Comment: Interpretive Data Reference Interval Normal ?>/= [...] of Race in Diagnosing Kidney Disease, JASN 202). The CKD-EPI equation should not be used for patients with unstable renal function and has not been validated in children and those over 70. Current interpretive data was last reviewed 2020. Blood 06/25/2022 10:1 6 AM CDT 06/25/2022 10:18 AM CDT us Amanda HOWELL LAB BLOOD ORDERABLES Final Resu lt NIDHI [address] [facility] Department [place] [address] [phone] * (ABNORMAL) Differential, auto (06/25/2022 10:16 AM CDT) Pathologist [facility] Neutrophil abs 4.9 1.7 - 6.5 K/cumm [facility] Imm gran abs 0.0 0.0 - 0.1 K/cumm [facility] Lymphocyte abs 1.5 0.8 - 3.3 K/cumm [facility] Monocyte abs 0.5 0.2 - 0.8 K/cumm [facility] Eosinophil abs 0.7(H) 0.0 - 0.5 K/cumm [facility] Basophil abs 0.0 0.0 - 0.1 K/cumm [facility] Neutrophil pct 64.2 % [facility] Comment: Interpretive Data Percent cell count reference ranges are not reported, since discordance with absolute values may lead to misinterpretation of CBC data. Current Interpretive Data was last revised on 2017. Imm gran pct 0.4 % [facility] Comment: Interpretive Data Percent cell count reference ranges are not reported, since discordance with absolute values may lead to misinterpretation of CBC data. Current Interpretive Data was last revised on 2017. Lymphocyte pct 19.6 % [facility] Comment: Interpretive Data Percent cell count reference ranges are not reported, since discordance with absolute values may lead to misinterpretation of CBC data. Current Interpretive Data was last revised on 2017. Monocyte pct 6.4 % [facility] Comment: Interpretive Data Percent cell count reference ranges are not reported, since discordance with absolute values may lead to misinterpretation of CBC data. Current Interpretive Data was last revised on 2017. Eosinophil pct 8.9 % [facility] Comment: Interpretive Data Percent cell count reference ranges are not reported, since discordance with absolute values may lead to misinterpretation of CBC data. Current Interpretive Data was last revised on 2017. Basophil pct 0.5 % [facility] Comment: Interpretive Data Percent cell count reference ranges are not reported, since discordance with absolute values may lead to misinterpretation of CBC data. Current Interpretive Data was last revised on 2017. Blood 06/25/2022 10:1 6 AM CDT 06/25/2022 10:18 AM CDT Amanda HOWELL LAB BLOOD ORDERABLES Final Resu lt Performing Organization Address [facility] de Phone Number NIDHI [address] [address] * D-dimer, quantitative (06/25/2022 10:16 AM CDT) D-Dimer <270 <=499 ng/mL FEU NIDHI Comment: Interpretive data FDA approved the D-dimer, [...] 68, VTE cut-off 680 ng/ml FEU. References; Schouten HT et al. Brit Med J. 2013;346:f2492. Erna ALMAZAN et al. Annals Int Med. 2015;163:701-11. Current interpretive data was last revised on 2018. Blood 06/25/2022 10:1 6 AM CDT 06/25/2022 10:18 AM CDT Amanda HOWELL LAB BLOOD ORDERABLES Final Resu lt Performing Organization Address [facility] de Phone Number NIDHI [address] [address] * Uric acid (06/25/2022 10:16 AM CDT) Uric acid 4.7 3.0 - 8.0 mg/dL NID[facility] Blood 06/25/2022 10:1 6 AM CDT 06/25/2022 10:18 AM CDT Amanda HOWELL LAB BLOOD ORDERABLES Final Resu lt NIDHI [address] [facility] Department [place] [address] * Comprehensive metabolic panel (06/25/2022 10:16 AM CDT) Sodium 140 135 - 145 mmol/L [facility] Potassium, pl 4.3 3.3 - 4.9 mmol/L [facility] Chloride 105 97 - 110 mmol/L [facility] CO2 28 22 - 32 mmol/L [facility] Anion gap 7 2 - 15 mmol/L [facility] BUN 11 8 - 25 mg/dL [facility] Creatinine 1.00 0.80 - 1.30 mg/dL [facility] Glucose 90 70 - 199 mg/dL [facility] Comment: Interpretive Data Fasting glucose >/= 126 [...] Current interpretive data was last revised 2022. Calcium 9.9 8.5 - 10.3 mg/dL [facility] Bilirubin, total <0.2 0.1 - 1.2 mg/dL [facility] Protein, pl 7.0 6.5 - 8.5 g/dL [facility] Albumin 4.5 3.5 - 5.0 g/dL [facility] Alk phos 79 40 - 130 Units/L [facility] ALT 10 7 - 55 Units/L [facility] AST 12 10 - 50 Units/L [facility] Blood 06/25/2022 10:1 6 AM CDT 06/25/2022 10:18 AM CDT us Amanda HOWELL LAB BLOOD ORDERABLES Final Resu lt NIDHI [address] [facility] Department [place] [address] * CBC with auto differential (06/25/2022 10:16 AM CDT) WBC 7.6 3.8 - 9.9 K/cumm [facility] Hgb 14.5 13.0 - 17.5 g/dL [facility] Hct 44.4 38.9 - 50.3 % [facility] Plt 265 150 - 400 K/cumm [facility] MPV 9.3 9.1 - 12.3 fL [facility] RBC 4.76 4.30 - 5.80 M/cumm [facility] MCV 93.3 81.3 - 96.4 fL [facility] MCH 30.5 27.1 - 33.3 pg [facility] MCHC 32.7 32.3 - 35.7 g/dL [facility] RDW CV 13.2 11.1 - 14.9 % [facility] RDW SD 45.2 35.7 - 48.1 fL [facility] NRBC abs 0.00 0.00 - 0.01 K/cumm [facility] Blood 06/25/2022 10:1 6 AM CDT 06/25/2022 10:18 AM CDT us Amanda HOWELL LAB BLOOD ORDERABLES Final Resu lt NIDHI [address] [facility] Department [place] [address] documented in this encounter Visit Diagnoses Diagnosis Swelling of left foot- Primary Elevated blood pressure reading Elevated blood pressure reading without diagnosis of hypertension documented in this encounter Administered Medications Inactive Administered Medications - up to 3 most recent administrations Medication Order MAR Action Action Date Dose Rate Site ibuprofen (ADVIL,MOTRIN) tablet/capsule 600 mg 600 mg, oral, Once, On 06/25/22 at 1018, For 1 dose Given 06/25/2022 11:31 AM CDT 600 mg documented in this encounter Active and Recently Administered Medications Times are shown in CDT. Scheduled Medication Order 06/23/2022 06/24/2022 06/25/2022 ibuprofen (ADVIL,MOTRIN) tablet/capsule 600 mg (COMPLETED) 600 mg, oral, Once, On 06/25/22 at 1018, For 1 dose 1131 (Given - Provid er: Ariela Felipe, KATHY) documented in this encounter Orders Medications Ordered That Nemesio ht Not Have Been Administered Count Last Ordered Date First Ordered Date ibuprofen (ADVIL,MOTRIN) tab let/capsule 600 mg 1 06/25/2022 Nursing Count Last Ordered Date First Orde red Date APPLY ERIKA WRAP 1 06/25/2022 documented in this encounter Care Teams Chief Dog License Inspector Relationship Specialty Start Date End Date No, Physician PCP - General 12/07/21 07/24/22 documented as of this encounter
--- OUTSIDE RECORDS SUMMARY | 2024-02-19 03:35 | XMS_ITS | Encounter Summary ---
Author Organization [facility] Healthcare Address [address] [place] [address] Care Team Providers Care Pharmacovigilance Specialist Name Role Phone Tracy Soto Primary Care Prov ider Reason for Referral * Diagnostic Imaging (Routine) - Closed Specialty Diagnoses / Procedures Referred By Preeti tatum Referred To Contact Diagnoses Pain in left foot Procedures XR Foot Left 3+ View Grayson Walker MD Phone: tel: fax: [address] [phone] Referral ID Status Reason Start Date Expiration Date Visits Re quested Visits Authorized [id number] Closed 09/04/2022 10/04/2023 1 1 Reason for Visit * Diagnostic Imaging (Routine) - Closed Specialty Diagnoses / Procedures Referred By Preeti tatum Referred To Contact Diagnoses Pain in left foot Procedures XR Foot Left 3+ View Grayson Walker MD Phone: tel: fax: [address] [phone] Referral ID Status Reason Start Date Expiration Date Visits Re quested Visits Authorized [id number] Closed 09/04/2022 10/04/2023 1 1 Encounter Details Date Type Department Care Team (Latest Contact Info) Description 09/06/2022 8:30 AM CDT - 09/06/2022 11:59 PM CDT Hospital Encounter [facility] [address] 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 Electronically signed by: Fritz Sahni MD Grayson Walker MD IMG XR PROCEDURES Final Result documented in this encounter Visit Diagnoses Diagnosis Pain in left foot Pain in soft tissues of limb documented in this encounter Care Teams Pharmacovigilance Specialist Relationship Specialty Start Date End Date Tracy Soto PA PCP - General Neurosurgery 07/25/22 documented as of this encounter
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
--- OUTSIDE RECORDS SUMMARY | 2024-02-19 03:35 | XMS_ITS | Referral Summary ---
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
--- OUTSIDE RECORDS SUMMARY | 2024-02-19 03:35 | XMS_ITS | Continuity of Care Document ---
Author Organization [facility] Address [address] [place] [address] Phone Care Team Providers Care Optimization Analyst Name Role Phone Short PT, Charlee Unavailable Unavailable Procedures Procedure Date Therapeutic Activities Neuromuscular Re-Ed Therapeutic Exercise Manual Therapy Hot or Cold Pack PT Evaluation Moderate Complexity Therapeutic Activities Manual Therapy Hot or Cold Pack Advance Directives Directive Yes / No Effective Date File Name No Information Encounters Encounter Description Practice Location Reason(s) For Visit Diagnoses Date Provider Providers Copied on Encounter [facility] [address], [place], [place], [id number], tel:[phone] [place] No Information Short Charlee. . [facility], [id number], tel:[phone] [place] No Information Short Charlee. . Referring Provider: Camden Hung, [address] [place] [address] [address], [place], [address]. tel:[phone] [facility] [address] [address], [place], [place], [id number], tel:[phone] [place] No Information Short Charlee. . Referring Provider: Camden Hung, [address], [place], [address]. tel:[phone] Family History Family Member Type Diagnosis Age At Onset No Information Payers Payer name Insurance type Covered libertarian ID karolina yoo(s) [employer] [facility] Social History Type Description Quantity Date Captured Comments Sex Male Smoking Status No Information Chief Complaint And Reason For Visit No Information Reason For Referral Reason For Referral No Information Plan Of Treatment Date Type Action Status Goal Tobacco cessation counseling completed Goal Tobacco Cessation Counseling completed History Of Present Illness Encounter Date Complaint History Of Prese nt Illness No Information Functional Status Date Functional Assessmen t No Information Instructions Date Instruction Additional Infor mation Giving encouragement to exercise Related to Overweight Giving encouragement to exercise Related to Overweight Assessments Type Assessment Date No Information Patient Care Teams Name Effective Dates (start - stop) Status Members No Information
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
--- OUTSIDE RECORDS SUMMARY | 2024-02-19 03:35 | XMS_ITS | Encounter Summary ---
Author Organization [facility] Address [address] [place] [address] Phone Care Team Providers Care Nurse Practitioner Adult Name Role Phone Tracy Soto Primary Care Pro vider Reason for Referral * Radiology Services (STAT with Interpretation) - Closed Specialty Diagnoses / Procedures Referred By Contac t Referred To Contact Radiology Diagnoses Leg swelling Pain of left calf Procedures US LEFT DUPLEX LOWER EXTREMITY VEINS Tracy Soto, LAURA [address] [place] [address] Phone: tel: fax: Referral ID Status Reason Start Date Expiration Date Visits Re quested Visits Authorized [id number] Closed 06/26/2022 1 1 Reason for Visit * Reason Comments [facility] follow up L eft leg swelling from knee sown to the foot Encounter Details Date Type Department Care Team (Late st Contact Info) Description 06/26/2022 11:30 AM CDT Office Visit [facility] - Internal Medicine - [place] [address] [place] [id number] Tracy Soto, PAC [address] [place] [id number] Leg swelling (Primary Dx); Pain of left calf; Elevated blood pressure reading; Well adult exam Discharge Disposition: Discharged to [...] AM CDT documented as of this encounter Last Filed Vital Signs Vital Sign Reading Time Taken Comments Blood Pressure 172/80 06/26/2022 11:30 AM CDT Pulse 82 06/26/2022 11:30 AM CDT Temperature 36.7 ??C (98 ??F) 06/26/2022 11:30 AM CDT Respiratory Rate 14 06/26/2022 11:30 AM CDT Oxygen Saturation 100% 06/26/2022 11:30 AM CDT Inhaled Oxygen Concentration - - Weight - - Height - - Body Mass Index - - documented in this encounter Functional Status * [...] Parada RMA documented as of this encounter Patient Instructions * Patient Instructions* Macy Parada RMA - 06/26/2022 11:30 AM CDT Images from the original note [...] require a prescription and some youcan purchase [id number]. Medicines may have nicotine in them to [...] for support and encouragement. Call telephone quitlines (6-124-AUTY-NOW), reach out to support groups, or work [...] provider. Document Revised: 10/07/2021 Document Reviewed: 04/19/2019 [employer] Patient Education ?? 2021 [employer] Health Risks of Smoking Smoking tobacco [...] also visit: ??? [place] [employer]: www.naquitline.org or call 1-098-VEVC-NOW. ??? U.[place]. Department of Health and Human [...] provider. Document Revised: 10/03/2021 Document Reviewed: 03/15/2020 [employer] Patient Education ?? 2021 [employer] documented in this encounter Progress Notes * Tracy oSto, LAURA - 06/26/2022 11:30 AM CDT Chief Complaint: Chief Complaint Patient presents with ??? [facility] follow [facility] Left leg swelling from knee sown to the foot Assessment/Plan: Diagnoses and all orders for this visit: Leg swelling - US LEFT DUPLEX LOWER EXTREMITY VEINS; Future Pain of left calf - US LEFT DUPLEX LOWER EXTREMITY VEINS; Future Elevated blood pressure reading Well adult exam - CMP (COMPREHENSIVE METABOLIC PANEL); Future - LIPID PANEL; Future - HEMOGLOBIN A1C W/ ESTIMATED GLUCOSE; Future - COMPLETE BLOOD COUNT (CBC) WITH DIFF; Future - THYROID STIMULATING HORMONE (TSH); Future Needs future OV for well visit Otherwise, venous doppler acute stat today to r/o DVT L lower leg Venous doppler neg for DVT Advise pt to take MDP Labs for well visit and will go over at his f/u Subjective: Mr. Geoffrey Walker is a 47 y.o. male here today for above. L lower leg pain and swelling Went to ER but they did not do venous doppler Swelling and pain persist Pain is in L calf No SOB No other c/o Has not had recent labs ROS: Review of Systems Cardiovascular: Positive for leg swelling. Musculoskeletal: L leg pain Pain a calf Leg swelling VITAL SIGNS: BP Readings from Last 3 Encounters: 06/26/22 172/80 12/21/21 150/84 Wt Readings from Last 3 Encounters: 12/21/21 160 lb 1.6 oz (72.6 kg) Vitals: 06/26/22 1130 BP: 172/80 BP Location: Right Arm BP Position: Sitting BP Cuff Size: Regular Pulse: 82 Resp: 14 Temp: 98 ??F (36.7 ??C) TempSrc: Temporal SpO2: 100% There is no height or weight on file to calculate BMI. PHYSICAL EXAM: Physical Exam Vitals reviewed. Constitutional: Appearance: Normal appearance. HENT: Head: Normocephalic and atraumatic. Cardiovascular: Rate and Rhythm: Regular rhythm. Heart sounds: Normal heart sounds. Pulmonary: Breath sounds: Normal breath sounds. Skin: Comments: Swelling LEFT lower leg Pedal pulse noted No redness No open area Calf pain noted Neurological: General: No focal deficit present. Mental [...] Information Return in about 2 weeks (around 07/10/2022) for BP Review, 30 MIN EXTENDED VISIT. LOS Today OFFICE/OP EST LVL 3 LOW [...] given to the patient. 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 verbal understanding of instructions [...] documented as of this encounter Results * THYROID STIMULATING HORMONE (TSH) (06/26/2022 1:39 PM CDT) TSH 1.110 0.270 - 4.200 mIU/L 06/26/2022 3:17 PM CDT [email or web address] Blood Venipuncture / Unknown 06/26/2022 1:39 PM CDT 06/26/2022 2:44 PM CDT us Tracy Soto PAC CHEMISTRY ORDERAB LES Final Result [facility] [address] [place] [address] * HEMOGLOBIN A1C W/ ESTIMATED GLUCOSE (06/26/2022 1:39 PM CDT) Pathologist [facility] HGB-A1C 5.5 4.0 - 6.0 % 06/26/2022 3:03 PM CDT [facility] Est Average Glucose 111.2 mg/dL 06/26/2022 3:03 PM CDT [facility] Blood Venipuncture / Unknown 06/26/2022 1:39 PM CDT 06/26/2022 2:45 PM CDT Narrative [facility] - 06/26/2022 3:03 PM CDT HEMOGLOBIN A1C: DIABETIC PATIENTS: WELL-CONTROLLED: ?? 6.2 - 7.0 INTERMEDIATE WELL-CONTROLLED: ??7.0 - 9.0 POORLY-CONTROLLED: ??>9.0 Tracy Soto PAC CHEMISTRY ORDERAB LES Final Result Performing Organization Address City/[facility] Co de Phone Number [facility] [place] [address] * LIPID PANEL (06/26/2022 1:39 PM CDT) CHOLESTEROL 168 <=200 mg/dL 06/26/2022 3:17 PM CDT [facility] TRIGLYCERIDES 54 <150 mg/dL 06/26/2022 3:17 PM CDT [facility] HDL CHOLESTEROL 63.4 >40 mg/dL 3:17 PM CDT [facility] LDL 94 5 - 130 mg/dL 06/26/2022 3:17 PM CDT [facility] VLDL 11 5 - 55 mg/dL 06/26/2022 3:17 PM CDT [facility] CHOL/HDL RATIO 2.6 0.0 - 4.4 06/26/2022 3:17 PM CDT [facility] NON-HDL CHOLESTEROL 104.6 <130 mg/dL 06/26/2022 3:17 PM CDT [facility] IS THE PATIENT REQUIRED TO BE FASTING? Yes 06/26/2022 3:17 PM CDT [facility] HAS THE PATIENT BEEN FASTING? Yes 06/26/2022 3:17 PM CDT [facility] Blood Venipuncture / Unknown 06/26/2022 1:39 PM CDT 06/26/2022 2:44 PM CDT us Tracy Soto PAC CHEMISTRY ORDERAB LES Final Result [facility] [address] [place] [address] * (ABNORMAL) CMP (COMPREHENSIVE METABOLIC PANEL) (06/26/2022 1:39 PM CDT) SODIUM 138 136 - 144 mmol/L 06/26/2022 3:17 PM CDT [facility] POTASSIUM 3.9 3.5 - 5.1 mmol/L 06/26/2022 3:17 PM CDT [facility] CHLORIDE 101 100 - 110 mmol/L 06/26/2022 3:17 PM CDT [facility] CO2, VENOUS 30 22 - 32 mmol/L 06/26/2022 3:17 PM CDT [facility] ANION GAP 10.9 8.0 - 20.0 mmol/L 06/26/2022 3:17 PM CDT [facility] GLUCOSE 84 70 - 99 mg/dL 06/26/2022 3:17 PM CDT [facility] BUN 10 6 - 20 mg/dL 06/26/2022 3:17 PM CDT [facility] CREATININE, BLOOD 0.91 0.80 - 1.30 mg/dL 06/26/2022 3:17 PM CDT [facility] BUN/CREATININE RATIO 11(L) 12 - 20 ratio 06/26/2022 3:17 PM [facility] TOTAL PROTEIN 6.6 6.0 - 8.3 g/dL 06/26/2022 3:17 PM [facility] ALBUMIN 4.3 3.5 - 5.2 g/dL 06/26/2022 3:17 PM [facility] Comment: The colormetric methods used for the determination of Albumin may lead to falsely elevated test results in patients suffering from renal failure or insufficiency due to interference with other proteins. A/G RATIO 1.9 1.0 - 2.0 06/26/2022 3:17 PM [facility] CALCIUM 9.3 8.9 - 10.3 mg/dL 06/26/2022 3:17 PM [facility] T BILI <0.3 <=1.2 mg/dL 06/26/2022 3:17 PM [facility] SGOT (AST) 14 <=40 U/L 06/26/2022 3:17 PM [facility] SGPT (ALT) 11 <=41 U/L 06/26/2022 3:17 PM [facility] ALKALINE PHOSPHATASE 76 40 - 130 U/L 06/26/2022 3:17 PM [facility] IS THE PATIENT REQUIRED TO BE FASTING? No 06/26/2022 3:17 PM [facility] GFR, ESTIMATED >60 >=60 06/26/2022 3:17 PM [facility] Comment: Creatinine Clearance is the preferred criteria for selecting drug dose adjustments in renally impaired patients. ??The GFR is provided as additional pertinent clinical information. GFR is reported in mL/min/1.73 sq m. Calculation based on the Chronic Kidney Disease Epidemiology Collaboration (CKD- EPI) equation refit without adjustment for race. GFR, EST. >60 >=60 023 3:17 PM T [facility] GFR, EST. NONAFRICAN >60 >=60 06/26/2022 3:17 PM CDT [facility] [[email or web address] Blood Venipuncture / Unknown 06/26/2022 1:39 PM CDT 06/26/2022 2:44 PM CDT Tracy Soto PAC CHEMISTRY ORDERAB LES Final Result [facility] [[email or web address] [address] [place] [address] * US LEFT DUPLEX LOWER EXTREMITY VEINS [...] PM T: ??06/26/2022 3:01 PM Report ID: [id number] Reading Location: ??[id number] Procedure Note Timbo Burrows MD - 06/26/2022 [...] Timbo Burrows M.D. BC: CEDRICK Report ID: [id number] Reading Location: [place] [address] IMPRESSION: No sonographic evidence of left lower extremity deep venous thrombosis. us Tracy Soto PAC IMG US ORDERABLES Final Result documented in this encounter Visit Diagnoses Diagnosis Leg swelling- Primary Swelling of limb Pain of left calf Elevated blood pressure reading Elevated blood pressure reading without diagnosis of hypertension Well adult exam Routine general medical examination at a health care facility Leg swelling Swelling of limb Pain of left calf documented in this encounter Care Teams Nurse Practitioner Adult Relationship Specialty Start Date End Date Tracy Soto, PAC [address] [place] [address] PCP - General Physician Field Marketing Coordinator 12/21/21 documented as of this encounter
--- OUTSIDE RECORDS SUMMARY | 2024-02-19 03:35 | XMS_ITS | Encounter Summary ---
Author Organization [facility] Address [address] [place] [address] Phone Care Team Providers Care Networks Software Consultant Name Role Phone Tracy Soto Primary Care Prov ider Encounter Details Date Type Department Care Team (Late st Contact Info) Description 07/27/2022 Telephone [facility] Surgery [address] [facility] 2[address] [place] [address] Jan Jacobson MD [facility] [place] [address] Social History Tobacco Use Types Packs/Day Years Used Date Smoking Tobacco: Never Assessed Sex and Gender Information Value Date Recorded Sex Assigned at Not on file 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 Called and spoke to regarding referral for leg swelling. Notes mentioned rest pain for last 2-3 months. Reviewed his MALIA and LEV. Both show normal findings. Asked if he has back issues. Hedid have a previous injury and was told his symptoms are most likely from a pinched nerve. His painmoves from feet to knee. Discussed arterial pain to him. He understands and thanked me for calling.Will close referral. New Patient Referral for review Received: 2 days ago Yanely Lindsey Sara N., CMA New pt ref Referral Referral # [id number] Referral Information Referral # Creation Date Referral Status Status Update [id number] 07/25/2022 Pending Review 07/25/2022: Status History Status Reason Referral Type Referral Reasons Referral Class Coverage Verification Needed Consultation Specialty Services Required Internal To Specialty To Provider To Location/Place of Service To Department Vascular Surgery Jan Jacobson MD [facility] (All Locations) none To Vendor Referred By By Location/Place of Service By Department none Tracy Soto PA [facility] (11) [facility] Priority Start Date Expiration Date Referral Entered By Routine 07/25/2022 08/24/2023 Yanely Lindsey Visits Requested Visits Authorized Visits Completed Visits Scheduled 12 12 Procedure Information Service Details Procedure Modifiers Provider Requested Approved [id number] - AMB REFERRAL TO VASCULAR SURGERY None Jan Jacobson MD 12 12 Diagnosis Information Diagnosis M79.89 (ICD-10-CM) - Leg swelling Referral Order Order Ambulatory referral to Vascular Surgery (Order # [id number]) on 07/25/2022 View Encounter documented in this encounter Plan of Treatment Not on file documented as of this encounter Visit Diagnoses Not on filedocumented in this encounter Care Teams Networks Software Consultant Relationship Specialty Start Date End Date Tracy Soto PA PCP - General Neurosurgery 07/25/22 documented as of this encounter
--- OUTSIDE RECORDS SUMMARY | 2024-02-19 03:35 | XMS_ITS | Encounter Summary ---
Author Organization [employer] Care Team Providers Care Manager Production Name Role Phone Tracy Soto PAC Primary Care Pro vider Encounter Details Date Type Department Care Team (Latest Contact Info) Description 12/21/2021 Travel Social History Tobacco Use Types Packs/Day Years Used Date Smoking Tobacco: Some Days Smokeless Tobacco: Never Alcohol Use Standard Drinks/Week Comments Yes 0 (1 standard drink = 0.6 oz pur e alcohol) Sexually Active Control Partners Comments Yes Sex [...] suspected to have Coronavirus/COVID-19? 

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
== END 2024-02-12 06:18 | disposition left against medical advice (07) ==
LOC: ANHED 02-12 06:14
DX: R03.0 Elevated blood-pressure reading, without diagnosis of hypertension (principal)
CPT/HCPCS: 99199